=== PATIENT | male | born 1935 | race Caucasian/White ===

== ENCOUNTER 2019-05-11 15:05 | Inpatient (IN) | payer MEDICARE, OTHER ==
[~2019-05-11 15:05] MED LIST: ISOVUE-370 76%-LOCM 1 ML ONE
[2019-05-11] MEDS ORDERED: Diltiazem 125 MG/25 ML ONE (15:34)
[2019-05-11] MEDS ORDERED: Aspirin Chewable 81 MG TAB ONE (15:34)
[2019-05-11 15:36] LABS: #Basophils 0.1 thou/uL (0.0-0.2); #Eosinphils 0.2 thou/uL (0.0-0.7); #Lymphocytes 3.6 thou/uL (1.20-3.40); #Neutrophils 6.7 thou/uL (1.40-6.50); %Basophils 0.6 % (0.0-1.0); %Eosinophils 1.7 % (0.0-10.0); %Lymphocytes 31.3 % (21.0-51.0); %Monocytes 8.3 % (0.0-10.0); %Neutrophils 58.2 % (42.0-75.0); Hemoglobin 14.4 g/dL (14.0-18.0); Mean Corpuscular HGB CONC 34.1 g/dL (32.0-36.0); Mean Corpuscular Hemoglobin 30.7 pg (27.0-31.0); Mean Corpuscular Volume 90.1 fL (78.0-98.0); Mean Platelet Volume 8.2 fL (7.4-10.4); Platelet Count 299 thou/uL (130-400); RBC Distribution Width 13.3 % (11.5-14.5); Red Blood Cell (RBC) Count 4.69 mill/uL (4.70-6.10); White Blood Cell (WBC) Count 11.5 thou/uL (4.8-10.8)
[2019-05-11 15:42] LABS: INR-International Normal Ratio 1.2; PTT 29.2 SEC (22.9-36.1)
--- NOTE | 2019-05-11 16:02 | RAD ---
EXAM: Portable chest PROVIDED CLINICAL HISTORY: Generalized weakness COMPARISON: 05/12/2017 FINDINGS: Cardiac silhouette appears prominent, which may be least partially on the basis of portable technique . Prominence of the pulmonary vasculature and pulmonary interstitium. No focal consolidation, pleural fluid or pneumothorax evident. IMPRESSION: Cardiomegaly and findings suggesting congestive failure. Follow-up recommended.
[2019-05-11 16:03] LABS: ALT (SGPT) 39 U/L (8-55); AST (SGOT) 43 U/L (5-34); Albumin 3.7 g/dL (3.4-4.8); Alkaline Phosphatase 107 U/L (40-150); Anion Gap 16 mmol/L (10-20); BUN (Urea Nitrogen) 21 mg/dL (8.4-25.7); Bilirubin, Total 0.6 mg/dL (0.2-1.2); Calc. Creatinine Clearance 91 mL/min (70-130); Calcium 9.8 mg/dL (7.8-10.44); Carbon Dioxide 24 mmol/L (23-31); Chloride 102 mmol/L (98-107); Estimated GFR-MDRD 83; Globulin 3.9 g/dL (2.4-3.5); Glucose 108 mg/dL (83-110); Magnesium 2.3 mg/dL (1.6-2.6); Potassium 4.2 mmol/L (3.5-5.1); Protein, Total 7.6 g/dL (5.8-8.1); Sodium 138 mmol/L (136-145)
[2019-05-11 16:22] LABS: CKMB 2.4 ng/mL (0-6.6)
[2019-05-11 16:51] LABS: Bacteria/HPF None Seen HPF (None Seen); Bilirubin Negative (Negative); Blood, Urine Trace (Negative); Clarity Clear (Clear); Glucose, Urine (Dipstick) Normal (Negative); Leukocyte Negative Leu/uL (Negative); Mucous/LPF 2+ LPF (<2+); Nitrite Negative (Negative); Protein, Urine (Dipstick) 50 mg/dL (Neg-Trace); RBC/HPF 0-3 HPF (0-3); Squamous Epithelial None Seen HPF (0-3); WBC/HPF 0-3 HPF (0-3)
[2019-05-11] MEDS ORDERED: Azithromycin 500 MG VIAL ONE (16:55)
[2019-05-11] MEDS ORDERED: Furosemide 20 MG/2 ML VIAL ONE (16:55)
[2019-05-11] MEDS ORDERED: Famotidine/PF 20 mg/2ml Vial ONE (16:55)
[2019-05-11] MEDS ORDERED: methylPREDNISolone Sod Succ/PF 125 MG/2 ML VIAL ONE (16:55)
[2019-05-11] MEDS ORDERED: diphenhydrAMINE 50 MG/ML VIAL ONE (16:55)
[2019-05-11] MEDS ORDERED: cefTRIAXone\\ROCEPHIN 2 GM VIAL ONE (16:58)
[2019-05-11] MEDS ORDERED: Sodium Chloride 0.9% 100 ML ONE (16:58)
[2019-05-11] MEDS ORDERED: Azithromycin 500 MG in Sodium Chloride 0.9% 250 ML 250 ML IVPB SCH (18:00)
--- NOTE | 2019-05-11 18:02 | PDOC.FPRHP ---
- History of Present Illness Chief Complaint: weakness, afib with rvr History of Present Illness: 83yo CM with h/o HLD, HTN, CAD, EtOH abuse presents for weakness found to be in afib with RVR. Pt was outside earlier today and reports feeling dizzy, lightheaded, and falling down. Denies LOC, n/v, numbness/tingling, or any focal neurologic deficits. Weakness was an overall weakness. No similar events in past. Patient does report having non-bloody diarrhea last night that awoke him from sleep but has since resolved today. No n/v, abdominal pain or cramping. No fever/chills. Denies CP. Pt does endorses dyspnea and cough for last 5-6 weeks that has worsened over past week and a "terrible cold." Denies any orthopnea or PND or LE edema. Records reviewed and had ECHO in 2017 that was WNL. ED Course: In the ED he was given 500cc NS bolus. Pepcid 20mg, Solumedrol 125mg, benadryl 50mg, and ASA 325mg He was given azithro 500mg and Rocephin 2g Found to be in afib with RVR, dilt gtt titrated up to 15, still in Afib with RVR , started on Amio bolus. Elevated BNP, cardiomegaly, given 20mg Lasix IV Elevated D-dimer, CTA chest taken. - Allergies/Adverse Reactions Allergies Allergy/AdvReac Type Severity Reaction Status Date / Time iodine Allergy Verified 05/16/14 11:05 - Home Medications Medication Instructions Recorded Confirmed Type Furosemide 20 mg PO DAILY 05/16/14 05/13/17 History Lisinopril/Hydrochlorothiazide 1 tab PO DAILY 05/16/14 05/13/17 History [Prinizide] Finasteride 5 mg PO DAILY 08/21/14 05/13/17 History Isosorbide Mononitrate [Imdur ER] 30 mg PO DAILY 08/21/14 05/13/17 History Loratadine [Loratadine Allergy] 10 mg PO DAILY 08/21/14 05/13/17 History PARoxetine HCl 20 mg PO DAILY 08/21/14 05/13/17 History Alfuzosin HCl [Alfuzosin HCl ER] 10 mg PO HS 05/13/17 05/13/17 History Gabapentin [Neurontin] 600 mg PO Q6H PRN 05/13/17 05/13/17 History Morphine ER [MS Contin] 15 mg PO Q8HR 05/13/17 05/13/17 History Comments: Patient unaware of his home medications. Will attempt to determine home meds. - History PMHx: HLD, HTN, BPH, chronic back pain, CAD. Echo 2017 WNL. PSHx: L hip, appy, back surgery x6 FHx:Son of DMI at age 32. Grandmother DMII. Mom [place] at 92. Social: Former smoker - 35py smoking history. Drinks about 12 back of beer daily and Scotch "when he can get it." No illicits. - Review of Systems General: denies: fever/chills, weight/appetite/sleep changes, night sweats, fatigue Eyes: denies: eye pain, vision changes ENT: denies: nasal congestion, rhinorrhea Respiratory: reports: cough, congestion, shortness of breath. denies: exercise intolerance Cardiovascular: reports: palpitation. denies: chest pain, edema, paroxysmal nocturnal dyspnea, orthopnea Gastrointestinal: reports: diarrhea. denies: nausea, vomiting, constipation, abdominal pain, GI bleeding Genitourinary: denies: incontinence, dysuria Skin: denies: rashes, jaundice Musculoskeletal: reports: stiffness (back). denies: tenderness Neurological: denies: numbness, syncope, seizure, weakness - Vital signs BP: 141/113 HR: 145 RR: 24 Tmax: 98.5 Pox: 96% on RA Wt: 99kg - Physical Exam Constitutional: NAD, awake, alert and oriented HEENT: PERRLA, EOMI, conjunctiva clear, grossly normal vision, MMM Neck: supple, trachea midline Heart: no murmurs/rubs/gallops, other (Tachycardia, irregularlly irregular rate and rhythm. 1+ pitting edema BL LE to mid-joshi) Lungs: no wheezing, no retractions, other (Course BS BL. Upper airway noises transmitted throughout. No focal consolidation noted.) Abdomen: soft, bowel sounds present, no masses/distention, other (Mildly TTP over epigastric region) Musculoskeletal: normal structure, normal tone Neurological: no focal deficit, normal sensation Skin: no rash/lesions, other (large midline wellhealed scar on back. Very cold LE L>R. Decreased BL LE pulses. No obvious sores noted.) Heme/Lymphatic: no unusual bruising or bleeding Psychiatric: normal mood and affect FMR H&P: Results - Labs Result Diagrams: 05/11/19 15:27 05/11/19 15:27 Lab results: WBC 11.5 thou/uL (4.8-10.8) H 05/11/19 15:27 Hgb 14.4 g/dL (14.0-18.0) 05/11/19 15:27 Hct 42.2 % (42.0-52.0) 05/11/19 15:27 MCV 90.1 fL (78.0-98.0) 05/11/19 15:27 Plt Count 299 thou/uL (130-400) 05/11/19 15:27 Neutrophils % 58.2 % (42.0-75.0) 05/11/19 15:27 Sodium 138 mmol/L (136-145) 05/11/19 15:27 Potassium 4.2 mmol/L (3.5-5.1) 05/11/19 15:27 Chloride 102 mmol/L (98-107) 05/11/19 15:27 Carbon Dioxide 24 mmol/L (23-31) 05/11/19 15:27 BUN 21 mg/dL (8.4-25.7) 05/11/19 15:27 Creatinine 0.88 mg/dL (0.7-1.3) 05/11/19 15:27 Glucose 108 mg/dL (83-110) 05/11/19 15:27 Lactic Acid 2.3 mmol/L (0.5-2.2) H 05/11/19 15:41 Calcium 9.8 mg/dL (7.8-10.44) 05/11/19 15:27 Total Bilirubin 0.6 mg/dL (0.2-1.2) 05/11/19 15:27 AST 43 U/L (5-34) H 05/11/19 15:27 ALT 39 U/L (8-55) 05/11/19 15:27 Alkaline Phosphatase 107 U/L (40-150) 05/11/19 15:27 CK-MB (CK-2) 2.4 ng/mL (0-6.6) 05/11/19 15:27 B-Natriuretic Peptide 372.8 pg/mL (0-100) H 05/11/19 15:27 Serum Total Protein 7.6 g/dL (5.8-8.1) 05/11/19 15:27 Albumin 3.7 g/dL (3.4-4.8) 05/11/19 15:27 Urine Ketones Trace mg/dL (Negative) A 05/11/19 16:29 Urine Blood Trace (Negative) A 05/11/19 16:29 Urine Nitrite Negative (Negative) 05/11/19 16:29 Ur Leukocyte Esterase Negative Tommy/uL (Negative) 05/11/19 16:29 Urine RBC 0-3 HPF (0-3) 05/11/19 16:29 Urine WBC 0-3 HPF (0-3) 05/11/19 16:29 Ur Squamous Epith Cells None Seen HPF (0-3) 05/11/19 16:29 Urine Bacteria None Seen HPF (None Seen) 05/11/19 16:29 - EKG Interpretation EKG: Afib with RVR - Radiology Interpretation Chest x-ray Status: image reviewed by me, report reviewed by me (cardiomegaly) CT scan - chest Status: report reviewed by me (negative for PE. Right Pulm infiltrate, BL pleural effusions.) FMR H&P: A/P - Problem List (1) Atrial fibrillation with RVR Current Visit: Yes Status: Acute Code(s): I48.91 - UNSPECIFIED ATRIAL FIBRILLATION (2) Lactic acid acidosis Current Visit: Yes Status: Acute Code(s): E87.2 - ACIDOSIS Comment: resolved. (3) CAD (coronary artery disease) Current Visit: Yes Status: Chronic Code(s): I25.10 - ATHSCL HEART DISEASE OF [place] CORONARY ARTERY W/O ANG PCTRS (4) Dyslipidemia Current Visit: Yes Status: Chronic Code(s): E78.5 - HYPERLIPIDEMIA, UNSPECIFIED (5) Hypertension Current Visit: Yes Status: Chronic Code(s): I10 - ESSENTIAL (PRIMARY) HYPERTENSION Qualifiers: Hypertension type: essential hypertension Qualified Code(s): I10 - Essential (primary) hypertension (6) Community acquired pneumonia Current Visit: Yes Status: Acute Code(s): J18.9 - PNEUMONIA, UNSPECIFIED ORGANISM - Plan 83yo M with h/o paroxysmal afib in 2013, CAD, HTN, and HLD who presents for weakness found to have afib with RVR 1. Afib with RVR - Dilt gtt at 15, given Amio bolus in ED - admit to IMCU and continue amio - monitor on tele - cards consult- Dr. Santos, apprec recs 2. Elevated Trop - h/o CAD, no CP - Trop 0.065. - EKG no acute T wave or ST changes, Afib with RVR - monitor on tele - trend trops 3. Sepsis 2/2 Community acquired PNA - s/p 1 dose azithro 500mg and Rocephin 2g in ED. Will continue abx. - CTA - Right pulm infiltrate - UA no s/s of infx, UCx and BCx pending - Will check procal - LA 2.3, will trend 4. Elevated BNP - BNP 372, records reviewed and baseline around 50 - ECHO in 2017 normal - will repeat ECHO - s/p Lasix 20mg IV in ED. 1+ pitting edema BL - Will monitor and diuresis prn 5. Elevated D- Dimer - D-dimer 1.68 - CTA negative for PE 6. HTN - prn hydralazine, will obtain med rec 7. H/o Alcohol Abuse - drinks "when he can get it" but to a 12pack per day and Scotch when he can - Checking BAL - ASE protocl - Will monitor VTE: Lovenox Diet: Code: DNR- DNI Disposition/LOS: Admit to IMCU, amio loading dose and dilt gtt, monitor on tele. Cards consulted , apprec rec. Anticipate hospitalization >48hours. FMR H&P: Upper Level - Pertinent history I was present with the spring intern and scribed the above HPI as we talked with the patient. Pt reports having episode of weakness. Did not have LOC. reports having cough and cold for 4-6 weeks. reports episode of diarrhea last night. - Pertinent findings Pt is somewhat somnolent. Pt has some trace edema in his lower extremities. HR tachy and irregular. Some mild rales noted bilaterally in both lung smith. No wheezes or crackles. - Plan Date/Time: 05/11/19 1800 I, Ghulam Lee MD PGY-3, have evaluated this patient and agree with findings/ plan as outlined by spring intern resident. Pertinent changes/additions are listed here. I adjusted the above plan and reviewed it with the spring intern. At this time we have started amiodarone drip along with his dilt drip which is maxed out. HR continues to run from 120-160. Pt in no acute distress. Reports having cold like symptoms for over a month. Will continue Rocephin and Azithromycin for now. CTA was taken and read pending. Trop elevated. will trend. Addendum - Attending - Attending Attestation Date/Time: 05/11/191940 I personally evaluated the patient and discussed the management with Dr. Cunningham. I agree with the History, Examination, Assessment and Plan documented above with any addition or exceptions noted below. The patient presents after an episode of weakness. He has also had a cough for over 4 weeks. The patient's white count is elevated. He was found to be in a.fib with RVR. He is maxed out on cardizem. Will bolus amiodarone and start a drip. He will admit to the icu. CTA chest shows infiltrate, will treat with iv antibiotics. Consulting cardiology.
--- NOTE | 2019-05-11 18:09 | CT ---
EXAM: CTA of the chest HISTORY: Chest pain and elevated d-dimer COMPARISON: 05/12/2017 TECHNIQUE: Multiple contiguous axial images were obtained a CTA of the chest with contrast per pulmon del embolism protocol. 3-D oblique MIP reformats and direct coronal reformats were performed. FINDINGS: HEART: Normal in size without focal cardiac abnormality. PULMONARY ARTERIES: Normal in caliber without filling defects to suggest pulmonary emboli. MEDIASTINUM: No hilar or mediastinal lymphadenopathy. LUNGS: 8 mm well-circumscribed left upper lobe pulmonary nodule. Scattered infiltrates are seen in th e posterior aspect of the right upper lobe and superior aspect of the right lower lobe. PLEURAL SPACE: Small bilateral pleural effusions. CHEST WALL SOFT TISSUES: Unremarkable VISUALIZED OSSEOUS STRUCTURES: Degenerative changes are seen in the spine. VISUALIZED SUBDIAPHRAGMATIC STRUCTURES: Unremarkable IMPRESSION: 1. No evidence of pulmonary thromboembolism 2. Right-sided pulmonary infiltrates 3. Bilateral pleural effusions.
[2019-05-11] MEDS ORDERED: Magnesium 2 GM/50 ML BAG (IN WATER) ONE (18:19)
[2019-05-11] MEDS ORDERED: Amiodarone 150 MG in Dextrose 5% in Water 100 ML IVPB SCH (18:30)
[2019-05-11] MEDS ORDERED: Calcium Carbonate 500 MG ChewTAB PO PRN (18:35)
[2019-05-11] MEDS ORDERED: Acetaminophen 325 MG TAB PO PRN (18:35)
[2019-05-11] MEDS ORDERED: Senokot S 8.6-50 MG TAB PO PRN (18:35)
[2019-05-11 19:17] LABS: Alcohol Less than 10 mg/dL (Less than 10); Phosphorus 2.8 mg/dL (2.3-4.7)
[2019-05-11 19:24] LABS: Troponin I 0.067 ng/mL (< 0.028)
[2019-05-11 19:37] LABS: Lactic Acid 1.8 mmol/L (0.5-2.2)
[2019-05-11] MEDS: Amiodarone 450 MG in Dextrose 5% in Water 250 ML IVPB SCH (20:46)
[2019-05-11 22:22] LABS: Troponin I 0.055 ng/mL (< 0.028)
[2019-05-11] MEDS: Lorazepam 2 MG/ML VIAL SLOW IVP PRN (22:59)
[2019-05-12] MEDS: Diltiazem HCl 125 MG, Admixture Fee 1 EACH in Sodium Chloride 0.9% 100 ML IVPB SCH ×2 (00:02→13:21)
[2019-05-12 01:34] LABS: #Lymphocytes 1.3 thou/uL (1.20-3.40); #Monocytes 0.2 thou/uL (0.11-0.59); %Basophils 0.1 % (0.0-1.0); %Eosinophils 0.3 % (0.0-10.0); %Lymphocytes 13.4 % (21.0-51.0); %Monocytes 1.9 % (0.0-10.0); %Neutrophils 84.3 % (42.0-75.0); Hemoglobin 13.9 g/dL (14.0-18.0); Mean Corpuscular HGB CONC 32.6 g/dL (32.0-36.0); Mean Corpuscular Hemoglobin 29.3 pg (27.0-31.0); Mean Platelet Volume 8.1 fL (7.4-10.4); Platelet Count 262 thou/uL (130-400); RBC Distribution Width 13.3 % (11.5-14.5); Red Blood Cell (RBC) Count 4.74 mill/uL (4.70-6.10); White Blood Cell (WBC) Count 9.5 thou/uL (4.8-10.8)
[2019-05-12 01:52] LABS: Lactic Acid 1.4 mmol/L (0.5-2.2)
[2019-05-12 02:00] LABS: Anion Gap 13 mmol/L (10-20); BUN (Urea Nitrogen) 22 mg/dL (8.4-25.7); Calc. Creatinine Clearance 80 mL/min (70-130); Calcium 9.3 mg/dL (7.8-10.44); Carbon Dioxide 26 mmol/L (23-31); Chloride 104 mmol/L (98-107); Estimated GFR-MDRD 84; Glucose 199 mg/dL (83-110); Potassium 3.9 mmol/L (3.5-5.1); Sodium 139 mmol/L (136-145)
[2019-05-12] MEDS: Amiodarone 450 MG in Dextrose 5% in Water 250 ML IVPB SCH ×2 (04:02→23:44)
--- NOTE | 2019-05-12 06:07 | PDOC.EVN ---
Event Note - Event Note Event Note: Paged to pt room at 0545 to evaluated for new onset left sided weakness, slurred speech. On exam patient has 0/5 LUE and 2/5 LLE. Left-sided facial droop. A/O x1. Slurred speech. Code Green stroke alert called. CT head w/o ordered.
--- NOTE | 2019-05-12 06:12 | PDOC.FM ---
- Subjective Subjective: Patient was found by nursing staff at approx 0530 this AM to have new slurred speech and left sided weakness. A code green was called at approx 0600 and night resident team evaluating the patient also noted new left-sided deficits. At that time the patient was also A&O x 1. Currently the patient is alert and has regained most of his speech back, although still slurred and weak on the left side. Otherwise denies any additional complaints. - Objective Vital Signs & Weight: Vital Signs (12 hours) Temp Pulse Ox 05/12/19 04:00 98.3 F 05/12/19 00:00 98.2 F 05/11/19 20:00 97.8 F 99 05/11/19 19:55 97.8 F Weight Weight 86.8 kg Most Recent Monitor Data Heart Rate from ECG 78 NIBP 144/67 NIBP BP-Mean 92 Respiration from ECG 14 SpO2 100 I&O: 05/10/19 05/11/19 05/12/19 06:59 06:59 06:59 Intake Total 220 Output Total 103 Balance 117 Result Diagrams: 05/12/19 01:28 05/12/19 01:28 Phys Exam - Physical Examination Constitutional: NAD slurred speech HEENT: moist MMs, sclera anicteric Neck: no JVD, supple Respiratory: no wheezing, clear to auscultation bilateral Decreased breath sounds in right lung base Cardiovascular: no significant murmur irregular rhythm, tachycardic Gastrointestinal: soft, non-tender, positive bowel sounds Musculoskeletal: no edema, pulses present 2/5 strength LUE, 3/5 strength LLE, 4/5 strength in RUE & RLE Psychiatric: normal affect, A&O x 3 Skin: no rash, normal turgor Dx/Plan (1) Atrial fibrillation with RVR Code(s): I48.91 - UNSPECIFIED ATRIAL FIBRILLATION Status: Acute (2) Community acquired pneumonia Code(s): J18.9 - PNEUMONIA, UNSPECIFIED ORGANISM Status: Acute Qualifiers: Laterality: unspecified laterality Qualified Code(s): J18.9 - Pneumonia, unspecified organism (3) CAD (coronary artery disease) Code(s): I25.10 - ATHSCL HEART DISEASE OF [place] CORONARY ARTERY W/O ANG PCTRS Status: Chronic Qualifiers: Coronary Disease-Associated Artery/Lesion type: unspecified vessel or lesion type [place] vs. transplanted heart: [place] heart Associated angina: angina presence unspecified Qualified Code(s): I25.10 - Atherosclerotic heart disease of [place] coronary artery without angina pectoris (4) Hypertension Code(s): I10 - ESSENTIAL (PRIMARY) HYPERTENSION Status: Chronic Qualifiers: Hypertension type: essential hypertension Qualified Code(s): I10 - Essential (primary) hypertension (5) Altered mental status Code(s): R41.82 - ALTERED MENTAL STATUS, UNSPECIFIED Status: Acute Qualifiers: Altered mental status type: disorientation Qualified Code(s): R41.0 - Disorientation, unspecified - Plan Plan: 83yo M with h/o paroxysmal afib in 2013, CAD, HTN, and HLD who presents for weakness found to have afib with RVR 1. Afib with RVR - Dilt gtt at 15, given Amio bolus in ED - admit to IMCU and continue amio - monitor on tele - Cardio consult- Dr. Santos, appreciate recs 2. Elevated Trop - h/o CAD, no CP - Trop 0.065 > 0.067 > 0.055 - EKG no acute T wave or ST changes, Afib with RVR - monitor on tele 3. Sepsis 2/2 Community acquired PNA - s/p 1 dose azithro 500mg and Rocephin 2g in ED. Will continue abx. - CTA - Right pulm infiltrate - UA no s/s of infx, UCx pending - BCx neg at 12 hours - Procal 0.17 > 0.13, will trend - LA 2.3 -> 1.8, will trend - Pulm consult--leonid Hood recs 4. Elevated BNP - BNP 372, records reviewed and baseline around 50 - ECHO in 2017 normal - will repeat ECHO this AM - s/p Lasix 20mg IV in ED. 1+ pitting edema BL - Will monitor and diuresis prn 5. Elevated D- Dimer - D-dimer 1.68 - CTA negative for PE 6. HTN - prn hydralazine, will obtain med rec 7. H/o Alcohol Abuse - drinks "when he can get it" but to a 12pack per day and Scotch when he can - Checking BAL - ASE protocl - Will monitor 8. CVA with Left-sided Weakness--NEW - Code Green called @ 0600 on 05/12/19 - repeat CT head w/o showed new small subdural on left - MRI head pending - CT angio: 4.6 mm focal clot in right MCA - Neuro consult--Harlan, appreciate recs - Neurosurgery consult--appreciate recs - adjust Lovenox to therapeutic dosing VTE: held pending Neurosurg recs Diet: HH Code: DNR- DNI Dispo: Admit to IMCU, amio loading dose and dilt gtt, monitor on tele. Cards, Pulm, Neuro, Neurosurg consulted, apprec rec. Awaiting results of MRI head. Anticipate hospitalization >48hours. Daughter: Taina Dominique, lives in [place], will be kept updated on patient's condition. Son in law: Michael (Taina ) cell: [phone] Son: Alban, cell: [phone] ^Patient states is okay to call the above three individuals for updates on his clinical condition Addendum - Attending - Attending Attestation Date/Time: 05/12/19 2745 I personally evaluated the patient and discussed the management with Dr. Whitlock. I agree with the History, Examination, Assessment and Plan documented above with any addition or exceptions noted below. Close to 6 the patient was noted to have left sided facial droop, left sided weakness and slurred speech. Mercedes michel called and pt taken to the ER for CT scan. We were called to come to the ER to evaluate for possible TPA. CT showed a small subdural hematoma, contraindication for tpa. After the initial CT, the patient's speech started improving and he was answering questions appropriately but left sided weakness remained. 0/5 in LUE and 2/5 in LLE. He was premedicated for the CT with shows a clot in the R MCA. With the subdural and now a clot in the MCA, lovenox is being held until we obtain neurology and neurosurgery recs. Pt's heart rate is improved with the diltiazem and amiodarone. Will continue antiibiotics for pneumonia. He also was hallucinating last night. ASE protocol is on board with his hx of alcohol use. We will follow specialists recs on how to proceed with anticoagulation in the setting of a clot in the MCA and a subdural hematoma. Adding PT/OT/ST.
[2019-05-12] MEDS ORDERED: diphenhydrAMINE 50 MG/ML VIAL ONE (06:41)
[2019-05-12] MEDS ORDERED: Famotidine/PF 20 mg/2ml Vial ONE (06:41)
[2019-05-12] MEDS ORDERED: Hydrocortisone Sod Succ/PF 100 mg/2 ml Vial ONE (06:41)
[2019-05-12] MEDS ORDERED: Hydrocortisone Sod Succ/PF 100 mg/2 ml Vial IVP SCH (07:30)
[2019-05-12] MEDS ORDERED: diphenhydrAMINE 50 MG/ML VIAL IVP SCH (07:30)
[2019-05-12] MEDS ORDERED: Famotidine/PF 20 mg/2ml Vial SLOW IVP SCH (07:30)
--- NOTE | 2019-05-12 07:52 | CT ---
PRELIMINARY REPORT/[facility]/EMERGENCY AFTER HOURS PROCEDURE: Addendum created by Lise Dominguez MD on 05/12/2019 6:32 AM Central Time ([place] & [place]) XOCHITL RADHA recieved report and has no questions. Initial Report created on 05/12/2019 6:27 AM Central Time ([place]) EXAM: CT Head Without Contrast EXAM DATE/TIME: 05/12/2019 6:14 AM CLINICAL HISTORY: 83 years old, male; Altered mental status/memory loss and speech disturbance; Patient HX: AMS; Left sided weakness; Slurred speech TECHNIQUE: Imaging protocol: Computed tomography of the head without contrast. Other technique: STROKE PROTOCOL was implemented. COMPARISON: CT Brain WO Con 05/12/2017 7:25 PM FINDINGS: Brain: There is approximately 5 mm left subdural hematoma which is slightly hypodense to brain and li rola subacute age. Previously seen low density chronic subdural collection was present on prior examination of similar thickness and therefore this likely indicates remote rebleeding into the hemorrhage. There is no hyperdense acute blood. There is no midline shift. There is age-related volume loss and mild microvascular change infarct. No loss of murcia-white differentiation. No hyperdense vascular sign. Ventricles: No ventriculomegaly. Bones/joints: No acute fracture. Sinuses: Unremarkable as visualized. No acute sinusitis. Mastoid air cells: No significant mastoid effusion. Soft tissues: Unremarkable as visualized. IMPRESSION: 1. Small left convexity subacute subdural hematoma thickness is low density chronic hematoma. No evid ence of acute hemorrhage currently within the collection. No mass effect or midline shift. 2. No findings to suggest acute territorial infarct. No acute parenchymal hemorrhage. ASSESSMENT: ASPECTS ([place] Stroke Program Early CT Score) is 10. Thank you for allowing us to participate in the care of your patient. Dictated and Authenticated by: Lise Dominguez MD 05/12/2019 6:27 AM Central Time ([place]) FINAL REPORT: CT BRAIN WITHOUT CONTRAST: PROVIDED CLINICAL HISTORY: Left-sided weakness. COMPARISON: None. FINDINGS/IMPRESSION: Agree with the preliminary interpretation given by VRSYL. Transcribed Date/Time: 05/12/2019 9:43 AM
--- NOTE | 2019-05-12 08:13 | CT ---
FINAL REPORT: CT angiogram brain with IV contrast and three-dimensional reconstructions CT angiogram great vessels neck with IV contrast and 3-D reconstructions PROVIDED CLINICAL HISTORY: Left-sided weakness COMPARISON: None FINDINGS/IMPRESSION: Agree with the preliminary interpretation given by JAZZY.
[2019-05-12] MEDS ORDERED: Potassium Chloride 20 MEQ TAB PO SCH (08:45)
[2019-05-12] MEDS ORDERED: Enoxaparin Sodium 80 MG/0.8 ML SYRINGE SC SCH (09:00)
[2019-05-12] MEDS ORDERED: Enoxaparin Sodium 40 MG/0.4 ML SYRINGE SC SCH (09:00)
[2019-05-12] MEDS: Enoxaparin Sodium 100 MG/ML SYRINGE SC SCH ×2 (09:22→20:49)
[2019-05-12] MEDS: Thiamine 100 MG TAB PO SCH ×2 (09:22→09:31)
[2019-05-12] MEDS ORDERED: Sodium Chloride 0.9% 500 ML IV SCH (09:45)
[2019-05-12] MEDS ORDERED: Aspirin 325 MG TAB PO SCH (10:00)
[2019-05-12] MEDS ORDERED: Iopamidol 370 76% 100 ML VIAL ONE (10:41)
--- NOTE | 2019-05-12 10:45 | CON ---
DATE OF CONSULTATION: 05/12/2019 REASON FOR CONSULTATION: Atrial fibrillation with a rapid rate. HISTORY OF PRESENT ILLNESS: Mr. Steiner is an 83-year-old man. He was brought to the hospital with weakness. He was found to be in atrial fibrillation with a rapid ventricular response. The patient had dizziness, lightheadedness, and falling. The patient was hypotensive, and he was given normal saline bolus, Pepcid, Solu-Medrol, Benadryl, and aspirin. Also, given antibiotics. He was given diltiazem, but the rate did not come down. Therefore, he has also been started on intravenous amiodarone. MEDICATIONS: Listed at home are, 1. Furosemide. 2. Lisinopril HCT. 3. Isosorbide. 4. Gabapentin. REVIEW OF SYSTEMS: Not reliable. The patient is somewhat confused. PAST MEDICAL HISTORY: Hypertension, hyperlipidemia, prostatism. SOCIAL HISTORY: The patient said he stopped smoking over 30 years ago. He drinks, its estimated a 12 pack of beer daily and scotch when he can get it. He also says "I enjoy a glass of wine." REVIEW OF SYSTEMS: Not really reliable now. The patient knows he is in the hospital, although he does not know what year it is. PHYSICAL EXAMINATION: GENERAL: This is a somewhat disheveled, but cooperative elderly gentleman. VITAL SIGNS: Blood pressure is 150/100, previously 129/106, pulse is 105, it is irregular. LUNGS: Some expiratory rhonchi and inspiratory rhonchi. No wheezing. CARDIAC: Irregularly irregular. No murmur, rub, or gallop. ABDOMEN: Soft, nontender. EXTREMITIES: No clubbing or cyanosis. There is mild edema. The left foot is cool, but not cold. PERTINENT LABORATORY DATA: Potassium is 3.9, creatinine is 0.87, troponin is 0.055. Hemoglobin is 13.9. EKG reveals atrial fibrillation with a rapid rate. Medicines, he is on intravenous amiodarone and diltiazem. The patient is not currently on enoxaparin, but need to start that. ASSESSMENT: Atrial fibrillation with a rapid rate, probably recent onset with a very rapid rate, it probably would have been symptomatic, if he had been in for a prolonged time, but we do not know the exact onset. The patient did not respond to diltiazem alone. PLAN: 1. He is on amiodarone and diltiazem. 2. Start enoxaparin. 3. If he does not convert to sinus, we will probably need transesophageal echo and cardioversion. Job ID: [id number]
--- NOTE | 2019-05-12 11:17 | CON ---
DATE OF CONSULTATION: 05/12/2019 TIME SPENT: This encompassed 70 minutes of time, of that time greater than 50% spent with the patient and/or the patient's unit in the hospital. CONSULTING PHYSICIAN: Family Medicine Residency Service. HISTORY OF PRESENT ILLNESS: The patient is an 83-year-old male, who came to the hospital yesterday with atrial fibrillation with rapid ventricular response. Apparently, he had fallen, may have a subdural hematoma, and may have a clot in the brain. He developed some left-sided weakness this morning and was taken to CT. Neurosurgery has been consulted. He is currently on amiodarone and Cardizem for control of atrial fibrillation. At the current time, he has no complaints other than the left-sided weakness. PAST MEDICAL HISTORY: 1. Concussion. 2. Hyperlipidemia. 3. Hypertension. 4. Benign prostatic hypertrophy. 5. Chronic back pain. 6. Coronary artery disease. PAST SURGICAL HISTORY: 1. Left hip surgery. 2. Appendectomy. 3. Back surgery. FAMILY MEDICAL HISTORY: Remarkable for diabetes mellitus and myocardial infarction. SOCIAL HISTORY: Thirty-five pack-year history of smoking, quit some time ago. Drinks about 12-pack of beer per day. MEDICATIONS: Prior to admission; 1. Furosemide 20 mg daily. 2. Lisinopril/hydrochlorothiazide 1 daily. 3. Finasteride 5 mg daily. 4. Isosorbide mononitrate 30 mg daily. 5. Loratadine 10 mg daily. 6. Paroxetine 20 mg daily. 7. Alfuzosin 10 mg nightly. 8. Neurontin 600 mg every 6 hours as needed. 9. Morphine extended release 15 mg every 8 hours. REVIEW OF SYSTEMS: Denies fever, chills, nausea, vomiting, hematemesis, melena, hematochezia, cough, or congestion. PHYSICAL EXAMINATION: VITAL SIGNS: Temperature 98.3, pulse 117, blood pressure 129/106, O2 saturation 99%. GENERAL: He is awake and in no distress. NEUROLOGIC: He is almost completely hemiparetic on his left side. He has a left-sided facial droop. Pupils are reactive to light. Sclerae anicteric. Oropharynx clear. NECK: No adenopathy or JVD. LUNGS: Clear without wheezing or rhonchi. CARDIAC: S1 and S2. Irregularly regular. Tachycardic. ABDOMEN: Soft and nontender. EXTREMITIES: No clubbing, cyanosis, or edema. LABORATORY DATA: White count 9.5, hemoglobin 13.9, hematocrit 42.6, platelet count 262. Sodium 139, potassium 3.8, chloride 104, CO2 of 26, BUN 22, creatinine 0.8, glucose 199. IMAGING STUDIES: His chest x-ray shows no mass, effusion, or infiltrate. A CT hinted the possible right lower lobe infiltrate. ASSESSMENT: 1. Atrial fibrillation with rapid ventricular response. 2. Right lower lobe infiltrate, possibly indicative of pneumonia. 3. Acute cerebrovascular accident. 4. Subdural hematoma which is small. PLAN: 1. Agree with rate control of atrial fibrillation. 2. Empiric antibiotics. 3. Neurology/Neurosurgery consultation. 4. DT precautions. Job ID: [id number]
--- NOTE | 2019-05-12 11:42 | PRG ---
DATE OF SERVICE: 05/12/2019 I personally reviewed records, imaging, and documentation and agreed with the notes of Keiry Bullock PA-C, dated 05/12/2019. Briefly, Mr. Steiner is an 83-year-old gentleman on whom we were consulted for subdural hematoma. The scan reveals a small nonsurgical subdural hematoma over the posterior inferior aspect of the left hemisphere, which I believe is asymptomatic and not causing significant mass effect. He does not require surgery. After leaving this recommendation, we were consulted as to the use of anticoagulants for an occluded right middle cerebral artery, contralateral to the subdural hematoma. This is not a simple question and requires a thoughful and nuanced neurology opinion. There are issues regarding the etiology of the occlusion. Paradoxical embolus or an embolus from the heart (like a recent PR resulting in AFib with very low EF or cardiac valvular disease) are etiologies in which anticoagulation might be warranted. For artery to artery embolus like a carotid plaque, then it is not the first choice. For intracranial stenosis that is thrombosed locally due to low blood pressure from poor cardiac output or overly aggressive BP lowering, then anticoagulation is also a back up choice. There is obviously an increased risk of the subdural hematoma enlarging with anticoagulation and there is a risk of the stroke hemorrhaging on the right side. Finally, the anticoagulant choice is critical. Our colleagues in Neurology would know that a large MCA infarct can swell and that it is possible that we will be called on the Neurosurgery Service in a few days to consider craniectomy. If the patient is fully anticoagulated on Coumadin, and certainly if they are placed on any of the newer anticoagulants, then the anticoagulation use will delay the life- saving procedure and likely result in or disability from our inability to perform the procedure safely. I am sure our colleagues in Neurology would weigh these facts carefully, consult with the family, and make decision as to anticoagulation or anti-platelet use that is nuanced. If anticoagulation is chosen, I am sure that our colleagues will start heparin infusion without a bolus and with a goal of a modest bump in the PTT. I am also sure they will order followup CT scans to ensure that the subdural hematoma is not enlarging and that the stroke is not becoming hemorrhagic. The straightforward neurosurgical question as to whether the subdural hematoma requires evacuation, is clear, it does not. Thank you for the consultation. Job ID: [id number] [facility] CENTERAriana
--- NOTE | 2019-05-12 12:32 | CON ---
DATE OF CONSULTATION: 05/12/2019 CONSULTING PHYSICIAN: Hospitalist Service. 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 PLAN: 1. Aspirin now and full-dose Lovenox for anticoagulation. 2. MRI of the brain. 3. Probable need for long-term anticoagulation. HISTORY OF PRESENT ILLNESS: Mr. Steiner is an 83-year-old man, who came in with atrial fibrillation with rapid ventricular response. He was neurologically intact when he was admitted. This morning when the nurse checked on him, she noted a left-sided weakness. He was taken down to CT for evaluation. There was found to have some chronic subdural bleed, but no other acute abnormality. He had a CT angiogram, which reportedly showed some amount of clot, although I cannot find a report. The nurses notes that his degree of weakness on the left side is improved somewhat. He is without any complaint of headache, nausea, vomiting, or vertigo. He has never had any stroke symptoms in the past by his report. PAST HISTORY: Hypertension, low back, lumbar disk disease, hyperlipidemia, and arthritis. ALLERGIES: NONE. SOCIAL HISTORY: He drinks on occasion. No tobacco use. FAMILY HISTORY: Noncontributory. MEDICATIONS: Medication list was reviewed. REVIEW OF SYSTEMS: Ten-system review of systems is otherwise negative. PHYSICAL EXAMINATION: VITAL SIGNS: Blood pressure 129/107, pulse 115, saturations 94%, and respirations 22. HEENT: Pupils are equal. Conjunctivae are clear. Oropharynx clear. Cranium; normocephalic and atraumatic. NECK: Supple. No lymphadenopathy. EXTREMITIES: No cyanosis or edema. NEUROLOGIC: He was alert and cooperative. His speech was mildly dysarthric. There was a slight left facial droop present. He had some partial antigravity strength in the left arm and leg. Sensation was subjectively intact, although he seemed to have a degree of neglect. No abnormal movements were seen. IMAGING: Reviewed. SUMMARY: This is an 83-year-old gentleman with atrial fibrillation, who awoke with left-sided weakness. Given the uncertain onset time, I would agree we will treat this conservatively, starting antiplatelet and anticoagulation. Can review his scan before committing to starting oral anticoagulation. Job ID: [id number]
[2019-05-12] MEDS ORDERED: Aspirin 300 MG Suppository ONE (13:21)
[2019-05-12] MEDS: Aspirin 300 MG Suppository PR SCH (13:22)
[2019-05-12 15:42] LABS: PTT 30.8 SEC (22.9-36.1)
[2019-05-12 15:44] LABS: INR-International Normal Ratio 1.2; Prothrombin Time 14.9 SEC (12.0-14.7)
[2019-05-12 15:46] LABS: Cardiac Risk 4.3 (Less than 4.5)
[2019-05-12] MEDS: cefTRIAXone\\ROCEPHIN 2 GM in Sodium Chloride 0.9% 100 ML IVPB SCH (16:41)
[2019-05-12] MEDS ORDERED: cefTRIAXone\\ROCEPHIN 1 GM in Sodium Chloride 0.9% 100 ML IVPB SCH (18:00)
[2019-05-12] MEDS: Azithromycin 250 MG in Sodium Chloride 0.9% 250 ML 250 ML IVPB SCH (20:48)
[2019-05-12] MEDS ORDERED: Prevnar 13-Val Conj/PF 0.5 ML SYRINGE IM ONE (21:00)
[2019-05-12] MEDS ORDERED: Atorvastatin Calcium 40 MG TAB PO SCH (21:00)
[2019-05-13] MEDS: Diltiazem HCl 125 MG, Admixture Fee 1 EACH in Sodium Chloride 0.9% 100 ML IVPB SCH ×2 (04:01→13:47)
--- NOTE | 2019-05-13 05:43 | PDOC.FM ---
- Subjective Subjective: Patient agitated and pulled out peripheral line. NAEO otherwise. Reports feeling okay, no issues breathing. Denies fatigue, CP, palpitations. A&O x2. - Objective Vital Signs & Weight: Vital Signs (12 hours) Temp Pulse Ox 05/13/19 04:00 98.5 F 05/12/19 23:56 98.5 F 05/12/19 20:00 98.2 F 95 Weight Weight 87.2 kg Most Recent Monitor Data Heart Rate from ECG 112 NIBP 125/78 NIBP BP-Mean 93 Respiration from ECG 14 SpO2 92 I&O: 05/11/19 05/12/19 05/13/19 06:59 06:59 06:59 Intake Total 220 1466.4 Output Total 103 800 Balance 117 666.4 Result Diagrams: 05/13/19 05:30 05/13/19 05:30 Phys Exam - Physical Examination Constitutional: NAD HEENT: PERRLA, moist MMs Neck: no nodes, no JVD right lower lobe crackles Cardiovascular: irregular tachycardic Gastrointestinal: positive bowel sounds distended left face facial droop, LUE and LLE weakness Psychiatric: normal affect Skin: cap refill <2 seconds Dx/Plan (1) CVA (cerebral vascular accident) Code(s): I63.9 - CEREBRAL INFARCTION, UNSPECIFIED Status: Acute (2) Subdural hematoma, chronic Code(s): I62.03 - NONTRAUMATIC CHRONIC SUBDURAL HEMORRHAGE Status: Acute (3) Atrial fibrillation with RVR Code(s): I48.91 - UNSPECIFIED ATRIAL FIBRILLATION Status: Acute (4) Community acquired pneumonia Code(s): J18.9 - PNEUMONIA, UNSPECIFIED ORGANISM Status: Acute Qualifiers: Laterality: unspecified laterality Qualified Code(s): J18.9 - Pneumonia, unspecified organism (5) CAD (coronary artery disease) Code(s): I25.10 - ATHSCL HEART DISEASE OF [place] CORONARY ARTERY W/O ANG PCTRS Status: Chronic Qualifiers: Coronary Disease-Associated Artery/Lesion type: unspecified vessel or lesion type [place] vs. transplanted heart: [place] heart Associated angina: angina presence unspecified Qualified Code(s): I25.10 - Atherosclerotic heart disease of [place] coronary artery without angina pectoris (6) Altered mental status Code(s): R41.82 - ALTERED MENTAL STATUS, UNSPECIFIED Status: Acute Qualifiers: Altered mental status type: disorientation Qualified Code(s): R41.0 - Disorientation, unspecified (7) Depression Code(s): F32.9 - MAJOR DEPRESSIVE DISORDER, SINGLE EPISODE, UNSPECIFIED Status : Chronic (8) GERD (gastroesophageal reflux disease) Code(s): K21.9 - GASTRO-ESOPHAGEAL REFLUX DISEASE WITHOUT ESOPHAGITIS Status: Chronic - Plan Plan: 83yo M with h/o paroxysmal afib in 2013, CAD, HTN, and HLD who presents for weakness found to have afib with RVR #Afib with RVR - Not rate controlled despite uptitration of amio & dilt gtt - Therapeutic lovenox (also for R MCA clot) - Cardiology on board, possible RODRIGO? - recs appreciated #Sepsis 2/2 Community acquired PNA - CTA - Right pulm infiltrate - vanc & zosyn, continue pending blood cultures - Dr. May on board, recs appreciated #Indeterminate troponin - likely demand ischemia from afib with RVR. Has hx of CAD - Trops downtrendin.065 > 0.067 > 0.055 - EKG no acute T wave or ST changes - Continue clinically monitoring, reobtain EKG, new set of trops if experiencing new CP #Elevated BNP - BNP 372, records reviewed and baseline around 50 - ECHO in 2017 normal - pending repeat echo # Elevated D- Dimer - D-dimer 1.68 - CTA negative for PE #HTN - prn hydralazine, will obtain med rec # H/o Alcohol Abuse - unsure history - BAL negative - ASE protocl - clinically monitor #CVA with Left-sided Weakness - [facility] called @ 0600 on 05/12/19 - repeat CT head with chronic subdural hematoma, neurosurg/neurology consulted - CT angio: 4.6 mm focal clot in right MCA - MRI head pending this AM - On therapeutic lovenox -neurosurg- no surgical intervention at this time, brain MRI this AM, if unable to obtain will need CT head to assess subdural hematoma #Subdural hematoma, chronic -see plan above VTE: lovenox BID (per cards/neurology) Diet: HH Code: Full Lines: left wrist peripheral, right AC peripheral Dispo: 1)Afib with RVR: rate still uncontrolled, on dilt & amio drip. On lovenox BID. Cards recs appreciated. 2) Suspected PNA-Continue rocephin & azithromycin, pending blood cx. 3) Acute CVA- Pending echo & MRI. On anticoagulation. 4) Chronic subdural hematoma-check with neuro for serial CT head to monitor. On anticoag for R MCA occlusion/clot so must monitor for re- hemorrhage. Will discuss wtih Dr. Willard Addendum - Attending - Attending Attestation Date/Time: 05/13/19 1843 I personally evaluated the patient and discussed the management with Dr. gant. I agree with the History, Examination, Assessment and Plan documented above with any addition or exceptions noted below.
[2019-05-13 06:02] LABS: #Lymphocytes 1.9 thou/uL (1.20-3.40); #Monocytes 0.9 thou/uL (0.11-0.59); #Neutrophils 13.1 thou/uL (1.40-6.50); %Basophils 0.3 % (0.0-1.0); %Eosinophils 0.1 % (0.0-10.0); %Lymphocytes 12.1 % (21.0-51.0); %Monocytes 5.5 % (0.0-10.0); %Neutrophils 82.1 % (42.0-75.0); Hemoglobin 13.4 g/dL (14.0-18.0); Mean Corpuscular HGB CONC 32.6 g/dL (32.0-36.0); Mean Corpuscular Hemoglobin 29.7 pg (27.0-31.0); Mean Corpuscular Volume 90.8 fL (78.0-98.0); Mean Platelet Volume 8.1 fL (7.4-10.4); Platelet Count 305 thou/uL (130-400); RBC Distribution Width 13.7 % (11.5-14.5); Red Blood Cell (RBC) Count 4.52 mill/uL (4.70-6.10); White Blood Cell (WBC) Count 15.9 thou/uL (4.8-10.8)
[2019-05-13 06:09] LABS: INR-International Normal Ratio 1.2; PTT 30.7 SEC (22.9-36.1); Prothrombin Time 15.1 SEC (12.0-14.7)
[2019-05-13 06:21] LABS: Anion Gap 14 mmol/L (10-20); BUN (Urea Nitrogen) 26 mg/dL (8.4-25.7); Calc. Creatinine Clearance 80 mL/min (70-130); Calcium 9.3 mg/dL (7.8-10.44); Carbon Dioxide 25 mmol/L (23-31); Chloride 106 mmol/L (98-107); Estimated GFR-MDRD 83; Glucose 149 mg/dL (83-110); Sodium 141 mmol/L (136-145)
--- NOTE | 2019-05-13 07:18 | PRG ---
DATE OF SERVICE: 05/13/2019 I met Mr. Steiner in the ICU this morning. I explained to him the findings on his imaging studies of his brain, cerebral vasculature, and his left-sided neurological deficits. I explained to him there is a small left-sided subdural hematoma that is nonoperative. With it at some point in the future, I may need to see him back as that expands. As for the management of the stroke and anticoagulants, I am going to leave that to the Medical Service and Neurology. I am sure followup CT scans will be ordered if anticoagulation or anti-platelet agents are used. Neurosurgery will be available for any calls or questions should this subdural hematoma enlarge. Job ID: [id number]
[2019-05-13] MEDS ORDERED: Aspirin 325 MG TAB PO SCH (09:00)
--- NOTE | 2019-05-13 09:34 | CON ---
DATE OF CONSULTATION: HISTORY OF PRESENT ILLNESS: Mr. Steiner is an 83-year-old male. Neurosurgery was consulted for him this morning following a new onset of left-sided slurred speech and left upper and lower extremity weakness. Mr. Steiner presented to the emergency department yesterday with AFib, shortness of breath, and cough. He has generalized weakness and reported a fall approximately 2 days ago. When I see him this morning, he is resting comfortably. He has just gotten back from CT. He is awake and alert. He does have some slurred speech. He complains of unable to move the left half of his body and has some numbness in the left side of his face. CT shows small subdural hematoma. CTA showed right-sided MCA occlusion. He is moving the right side of his body well. Normal range of motion. Normal strength. Normal sensation on the right. Cranial nerves II through XII are tested and intact other than some left-sided facial droop and numbness on the left as well. REVIEW OF SYSTEMS: A 10-point review of systems has been completed and is negative other than stated in the above HPI. ALLERGIES: NO KNOWN DRUG ALLERGIES. PAST MEDICAL HISTORY: Hyperlipidemia, hypercholesterol, hypertension, and chronic back pain. PAST SURGICAL HISTORY: Six back surgeries, hernia, right and left hip surgery, and appendectomy. SOCIAL HISTORY: The patient drinks socially. History of ethanol abuse. The patient denies smoking history. Lives in home alone. CURRENT MEDICATIONS: None. PHYSICAL EXAMINATION: VITAL SIGNS: Temperature 97.7, heart rate 126, blood pressure 128/106, respirations 22, and O2 saturations 99% on room air. CONSTITUTIONAL: The patient is alert and oriented. He does not appear to be toxic. He is afebrile, but he is hypertensive and has some congestion. HEENT: Head is normocephalic and atraumatic. Pupils are equal, round, and reactive to light. Extraocular movements are intact. Hearing is intact. Moist mucous membranes. RESPIRATIONS: Symmetric chest rise. Some congestion and cough. EXTREMITIES: Right upper and lower extremities have normal range of motion. Normal sensation. 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 Normal left side upper extremity, the patient has a small amount of some wiggle, otherwise unable to move the left upper extremity. Lower extremity, he is able to wiggle his toes and extend his knee against gravity, otherwise 2/5. NEUROLOGIC: The patient is awake, alert, and oriented. He has some slurring of his speech, but comprehensible. GCS of 15. Cranial nerves II through XII are tested and intact except for some facial droop and some decreased sensation on the left side. Normal fund of knowledge. Left-sided weakness and left-sided change in sensation. IMAGING DATA: CT of the brain, small left-sided convexities of acute subdural hematoma thickness, low-density chronic hematoma approximately 5 mm. No mass effect or midline shift. No evidence of acute hemorrhage. CTA of the brain had atherosclerotic changes without evidence of significant cervical vascular stenosis. CTA of the neck, no vascular occlusion, correlated with chest x-ray. CTA of the head, there is an abrupt occlusion of the proximal right M1 segment and short segment of occluded M1 segment likely related to thrombus, which is reconstituted visibly, although there is decreased filling of the M2 branches, particularly anterior. ASSESSMENT AND PLAN: Mr. Steiner is an 83-year-old male with new onset of left . He has a small chronic subdural hematoma. This is not the cause of his new weakness. The occlusion of the right middle cerebral artery is likely the issue. From a neurosurgical standpoint, he does not need surgical intervention at this time. Neurology needs to be consulted for decision-making on whether or not we need what type of anticoagulation and the best therapy. There are issues regarding the etiology of the occlusion for a paradoxical embolus and for an embolus from the heart. If this is myocardial infarction resulting from atrial fibrillation or very low ejection fraction or valvular disease, and perhaps that is warranted for anticoagulation for an artery to artery embolus like a carotid plaque, then it is not the first choice for intracranial stenosis that thrombosed locally due to low blood pressure from poor cardiac output or aggressive blood pressure lowering and also backup choice. There is obviously an increased risk of the subdural hemorrhage enlarging with anticoagulation and risk of stroke hemorrhaging on the other side and anticoagulation of choice is critical. Neurologist would know that large middle cerebral artery infarction will swell and that it is possible we could need to consider craniotomy in a few days Coumadin or certainly with one of the newer anticoagulations, this would delay any life-saving procedure the patient. Note that Neurology will weigh these facts carefully, consult the family and make a decision and judiciously and carefully lower the rate of heparin infusion and administration for modest bump in the PTT without and repeat CT scans regularly. If there are any further questions, please contact Neurosurgery. Job ID: [id number]
[2019-05-13] MEDS: Enoxaparin Sodium 100 MG/ML SYRINGE SC SCH ×2 (09:45→21:59)
[2019-05-13] MEDS: Aspirin 300 MG Suppository PR SCH (09:46)
--- NOTE | 2019-05-13 12:57 | RAD ---
EXAM: Single view of the abdomen HISTORY: History of spinal stimulator. MRI spinning mule tender COMPARISON: None FINDINGS: Single view of the abdomen shows a nonspecific, nonobstructive bowel gas pattern. No suspi cious calcifications are seen. The bones are unremarkable. Hardware is seen in the lumbar spine. No spinal stimulator is seen. There is malalignment of the left hip prosthesis. IMPRESSION: 1. No evidence of spinal stimulator 2. Abnormal appearance of the left hip prosthesis. A left hip radiograph is recommended for further e valuation.
[2019-05-13] MEDS: Digoxin 0.5 MG/2 ML AMP SLOW IVP SCH ×3 (13:41→15:49)
[2019-05-13] MEDS: Amiodarone 450 MG in Dextrose 5% in Water 250 ML IVPB SCH (13:47)
[2019-05-13] MEDS ORDERED: Digoxin 0.5 MG/2 ML AMP SLOW IVP SCH (14:00)
--- NOTE | 2019-05-13 14:36 | CT ---
CT HEAD WITHOUT CONTRAST: HISTORY: Follow up subdural hematoma. COMPARISON: 05/12/2019 FINDINGS: Hemorrhage: Redemonstration of a predominantly hypodense collection along the left frontal-temporal- parietal extra-axial space. This collection measures 0.8 cm. Mild mass effect upon the left cerebrum without significant sulcal effacement. There is no midline shift. No mass effect. Stable parenchyma. Cortical murcia-white matter differentiation is preserved. No mass effect or midline shift. Basilar cisterns are patent. There are stable hypodensities in the left and right periventri cular white matter, as well as along the right roberts radiata. Chronic small vessel ischemic changes are favored. Ventricular system: Ventricles and sulci are patent and symmetric. Note is made of a cavum septa pe llucidum and cavum vergae. Calvarium: IIntact. Sinuses and mastoid air cells: Adequate aeration. IMPRESSION: 1. Redemonstration of a left extra-axial hematoma, compatible with a chronic subdural hematoma. No evidence of acute hemorrhage. 2. No significant mass effect or midline shift. Transcribed Date/Time: 05/13/2019 4:35 PM
--- NOTE | 2019-05-13 15:11 | PRG ---
DATE OF SERVICE: 05/13/2019 SUBJECTIVE: Taco Steiner is still confused. OBJECTIVE: GENERAL: He is in no distress. VITAL SIGNS: He is afebrile. Heart rate is 117, blood pressure is 151/109. LUNGS: Clear. HEART: Regular rhythm. ABDOMEN: Soft and nontender. IMAGING STUDIES: Echocardiogram shows an ejection fraction of 20% to 25% with him in atrial fibrillation. IMPRESSION: 1. Rapid atrial fibrillation. 2. Systolic cardiomyopathy. 3. Small subdural. 4. Possible pneumonia. 5. Acute cerebrovascular accident. PLAN: We will follow the other physicians. Job ID: [id number]
[2019-05-13] MEDS ORDERED: Insulin Regular 300 UNITS/3 ML VIAL ONE (16:22)
[2019-05-13] MEDS: cefTRIAXone\\ROCEPHIN 2 GM in Sodium Chloride 0.9% 100 ML IVPB SCH (17:47)
[2019-05-13] MEDS: Azithromycin 250 MG in Sodium Chloride 0.9% 250 ML 250 ML IVPB SCH (20:14)
[2019-05-13] MEDS: hydrALAZINE 20 MG/ML VIAL SLOW IVP PRN (22:10)
[2019-05-14] MEDS: Lorazepam 2 MG/ML VIAL SLOW IVP PRN ×2 (01:13→03:32)
[2019-05-14] MEDS: hydrALAZINE 20 MG/ML VIAL SLOW IVP PRN ×2 (02:18→03:13)
[2019-05-14] MEDS ORDERED: Furosemide 40 MG/4 ML VIAL SLOW IVP SCH ×2 (03:30→14:00)
[2019-05-14] MEDS ORDERED: Labetalol HCl 100 MG/20 ML VIAL SLOW IVP SCH (03:30)
[2019-05-14 04:59] LABS: #Lymphocytes 1.9 thou/uL (1.20-3.40); #Monocytes 1.2 thou/uL (0.11-0.59); #Neutrophils 13.7 thou/uL (1.40-6.50); %Eosinophils 0.2 % (0.0-10.0); %Lymphocytes 11.5 % (21.0-51.0); %Neutrophils 81.3 % (42.0-75.0); Hemoglobin 13.8 g/dL (14.0-18.0); Mean Corpuscular HGB CONC 32.8 g/dL (32.0-36.0); Mean Corpuscular Hemoglobin 29.6 pg (27.0-31.0); Mean Corpuscular Volume 90.2 fL (78.0-98.0); Platelet Count 306 thou/uL (130-400); Red Blood Cell (RBC) Count 4.68 mill/uL (4.70-6.10); White Blood Cell (WBC) Count 16.8 thou/uL (4.8-10.8)
[2019-05-14 05:05] LABS: INR-International Normal Ratio 1.2; PTT 31.6 SEC (22.9-36.1); Prothrombin Time 15.3 SEC (12.0-14.7)
[2019-05-14 05:18] LABS: Anion Gap 15 mmol/L (10-20); BUN (Urea Nitrogen) 22 mg/dL (8.4-25.7); Calc. Creatinine Clearance 85 mL/min (70-130); Calcium 8.9 mg/dL (7.8-10.44); Carbon Dioxide 23 mmol/L (23-31); Chloride 105 mmol/L (98-107); Estimated GFR-MDRD 90; Glucose 166 mg/dL (83-110); Potassium 3.5 mmol/L (3.5-5.1); Sodium 139 mmol/L (136-145)
[2019-05-14] MEDS: Piperacillin/Tazobactam 3.375 GM in Sodium Chloride 0.9% 100 ML IVPB SCH ×4 (05:51→22:23)
[2019-05-14] MEDS: Scopolamine 1.5 mg/72 hour Patch TD SCH (05:53)
--- NOTE | 2019-05-14 06:19 | PDOC.FM ---
- Subjective Subjective: Overnight became A&O x0, tachycardic, secretions, agitated, hypertnesive. Receivied lasix x1, duonebs, labetalol, ativan. this morning sleepy, however responsive - Objective MAR Reviewed: Yes Vital Signs & Weight: Vital Signs (12 hours) Temp Pulse Resp BP Pulse Ox 05/14/19 04:23 71 25 H 98 05/14/19 03:59 98.5 F 05/14/19 03:54 96 05/14/19 03:38 123 H 189/154 H 05/14/19 03:13 97 181/126 H 05/14/19 02:18 97 181/126 H 05/14/19 00:00 98.2 F 05/13/19 22:10 97 197/92 H 05/13/19 20:00 98.0 F 05/13/19 19:59 97 Weight Admit Weight 87.09 kg Weight 86.1 kg Most Recent Monitor Data Heart Rate from ECG 78 NIBP 142/89 NIBP BP-Mean 106 Respiration from ECG 23 SpO2 99 I&O: 05/12/19 05/13/19 05/14/19 06:59 06:59 06:59 Intake Total 220 1788.4 718.5 Output Total 103 800 720 Balance 117 988.4 -1.5 Result Diagrams: 05/14/19 04:39 05/14/19 04:39 Phys Exam - Physical Examination Constitutional: NAD HEENT: moist MMs secretions Neck: no nodes end expiratory wheezing, crackles Cardiovascular: irregular Gastrointestinal: positive bowel sounds distended Musculoskeletal: no edema left upper and lower extrmeity weakness 1/5 Dx/Plan (1) CVA (cerebral vascular accident) Code(s): I63.9 - CEREBRAL INFARCTION, UNSPECIFIED Status: Acute (2) Subdural hematoma, chronic Code(s): I62.03 - NONTRAUMATIC CHRONIC SUBDURAL HEMORRHAGE Status: Acute (3) Atrial fibrillation with RVR Code(s): I48.91 - UNSPECIFIED ATRIAL FIBRILLATION Status: Acute (4) Community acquired pneumonia Code(s): J18.9 - PNEUMONIA, UNSPECIFIED ORGANISM Status: Acute Qualifiers: Laterality: unspecified laterality Qualified Code(s): J18.9 - Pneumonia, unspecified organism (5) CAD (coronary artery disease) Code(s): I25.10 - ATHSCL HEART DISEASE OF [place] CORONARY ARTERY W/O ANG PCTRS Status: Chronic Qualifiers: Coronary Disease-Associated Artery/Lesion type: unspecified vessel or lesion type [place] vs. transplanted heart: [place] heart Associated angina: angina presence unspecified Qualified Code(s): I25.10 - Atherosclerotic heart disease of [place] coronary artery without angina pectoris (6) Altered mental status Code(s): R41.82 - ALTERED MENTAL STATUS, UNSPECIFIED Status: Acute Qualifiers: Altered mental status type: disorientation Qualified Code(s): R41.0 - Disorientation, unspecified (7) Depression Code(s): F32.9 - MAJOR DEPRESSIVE DISORDER, SINGLE EPISODE, UNSPECIFIED Status : Chronic (8) GERD (gastroesophageal reflux disease) Code(s): K21.9 - GASTRO-ESOPHAGEAL REFLUX DISEASE WITHOUT ESOPHAGITIS Status: Chronic - Plan Plan: 83yo M with h/o paroxysmal afib in 2013, CAD, HTN, and HLD who presents for weakness found to have afib with RVR #Afib with RVR - Rate controlled on amio & dilt gtt & dixogin. - Therapeutic lovenox (also for R MCA clot) - Likely from new onset systolic heart failure in setting of HFpEF - Cardiology on board, recs appreciated #Sepsis 2/2 aspiration vs. community acquired pneumonia - CTA - Right pulm infiltrate, serial CXR - continue vanc & zosyn, bcx negative, however NPO so continue IV abx with eventual oral transition - WBC trending down, afebrile - Dr. May on board, recs appreciated #Indeterminate troponin - likely demand ischemia from afib with RVR. Has hx of CAD - Trops downtrendin.065 > 0.067 > 0.055 - EKG no acute T wave or ST changes - Continue clinically monitoring, reobtain EKG, new set of trops if experiencing new CP #New onset systolic heart failure -TTE with EF 20-25%, start on estela lasix, strict I/O #Encephalopathy, medication induced -ABG with 7. -AMS likely from ativan, hold for now -will call to inquire about alcohol history, hold ASE protocol to avoid ativan #CVA with Left-sided Weakness - Mercedes Ramos called @ 0600 on 05/12/19 - repeat CT head with chronic subdural hematoma, neurosurg/neurology consulted - CT angio: 4.6 mm focal clot in right MCA - On therapeutic lovenox -neurosurg- no surgical intervention at this time, brain MRI this AM, if unable to obtain will need CT head to assess subdural hematoma #COPD exacerbation -estela duonebs -steroids -ABG values WNL #Subdural hematoma, chronic -see plan above #HTN - prn hydralazine # H/o Alcohol Abuse - unsure history - clinically monitor # Elevated D- Dimer, resolved - D-dimer 1.68 - CTA negative for PE VTE:th lovenox Diet: HH Code: Full Lines: left wrist peripheral, right AC peripheral Summary: 1)Afib with RVR: persistent afib but rate controlled with amio and dilt gtt. Digoxin started. Continue monitoring. Likely from new onset systolic heart failure. Anticoag with lovenox. Cards recs appreciated. 2) New onset systolic heart failure- CXR with pulm congestion. Start 80mg lasix BID, monitor. 3) Suspected PNA (aspiration vs. CAP) vs. pneumonitis- changed to zosyn and azithromycin to cover anaerobes. Bcx NGTD. Will obtain procal. Monitor for worsening. 4) Acute CVA- On lovenox. Statin held due to NPO status. MRI brain? Out of time window, appreciate neuro recs on this. 5) Chronic subdural hematoma- CT today with no change. Continue serial imaging. Neurosurg/neuro recs appreciated in regards to frequency. On anticoag for R MCA occlusion/clot so must monitor for re-hemorrhage. 6) Encephalopathy-likely ativan induced. 7) COPD exacerbation- ESTELA duonebs & solumedrol Discussed w/ Dr. Cleveland Addendum - Attending - Attending Attestation Date/Time: 05/14/19 3065 I personally evaluated the patient and discussed the management with Dr. Johnson I agree with the History, Examination, Assessment and Plan documented above with any addition or exceptions noted below. Complicated case of new onset AF with RVR with acute ischemic CVA( R MCA occlusion) in setting of HFrEF and small subdural hematoma. Patient on lovenox with bleeding risk well noted and is being appropriately monitored. Still dense right hemiparesis seemed obtunded s/p ativan earlier this AM . If worsened respiratory decline would not be ideal candidate for non-invasive ventilation and would require intubation to protect airway most likely. Patient needs continued observation and would hold excessive sedation aware of some concerns for alcohol withdrawal. Heart rate controlled diltiazem infusion and amiodarone noted rate responsive to BB as well. ABX coverage for asp PNA and nebs started. Family Out of State will continue to update status and severity of patients condition. Appreciate recommendations of Critical Care, Cardiology, Neurology and Neurosurgery in this precarious case.
--- NOTE | 2019-05-14 08:03 | RAD ---
EXAM: CHEST ONE VIEW HISTORY: Patient with subdural hematoma. Concern for aspiration. COMPARISON: 05/11/2019 FINDINGS: Cardiac silhouette is magnified by projection. Pulmonary vasculature is mildly increased and similar to prior exam. There are mild patchy parenchymal densities seen in the perihilar regions bilaterally predominantly at each lung base and in the midlung zones which could be related to asymme tric pulmonary edema versus infectious process. No pleural effusion is seen. Vascular calcifications are seen in the thoracic aorta. Degenerative changes are seen in the spine. No other i nterval change. IMPRESSION: 1. Interval development of mild patchy densities seen in the midlung zones and at each lung base and a perihilar location. Findings may be related to either asymmetric pulmonary edema versus infectious process. Follow-up to resolution is recommended. Aspiration pneumonitis cannot be entirely excluded. 2. Mild pulmonary vascular congestion.
--- NOTE | 2019-05-14 09:27 | CT ---
CT HEAD WITHOUT CONTRAST: INDICATIONS: Intracranial hemorrhage. Followup. FINDINGS: There is a persistent slightly hyperdense CSF collection overlying the left convexity, grossly stable , 6 to 7 mm in thickness, overlying the posterior left convexity. The cavum septum pellucidum et chantel gae is present. The ventricular system is normal in size for the patient's age. There is mild chron ic ischemic disease and parenchymal volume loss. IMPRESSION: Stable head CT with persistent slight increased density relative to cerebrospinal fluid overlying the left convexity, most consistent with a chronic subdural hematoma. No significant mass effect or mid line shift. POS: TPC
[2019-05-14 09:40] LABS: Actual Bicarbonate (HCO3a) 26.1 mEq/L (22-28); Base Excess (BEa) 2.9 mEq/L (-2.0 to +3.0); CO2 Tension 35.7 mmHg (35.0-45.0); Calcium, Ionized 1.14 mmol/L (1.12-1.30); Carboxyhemoglobin (COHb) 1.1 gm% (0.0-3.0); Hemoglobin (Hb) 13.8 g/dL (14.0-18.0); Potassium - ABG Lab 3.53 mmol/L (3.70-5.30); pH, Arterial 7.48 (7.35-7.45)
[2019-05-14 09:41] LABS: ALV-art Gradient 35.105 (0-20); Puncture Site LRA
[2019-05-14] MEDS: Digoxin 0.5 MG/2 ML AMP SLOW IVP SCH (10:27)
[2019-05-14] MEDS: Aspirin 300 MG Suppository PR SCH (10:27)
[2019-05-14] MEDS: Enoxaparin Sodium 100 MG/ML SYRINGE SC SCH ×2 (10:28→22:22)
[2019-05-14] MEDS: methylPREDNISolone Sod Succ 40 MG VIAL IVP SCH ×3 (10:28→22:15)
[2019-05-14] MEDS: Furosemide 40 MG/4 ML VIAL SLOW IVP SCH (14:23)
--- NOTE | 2019-05-14 17:33 | PRG ---
DATE OF SERVICE: 05/14/2019 SUBJECTIVE: Taco Steiner has been more somnolent today after receiving Ativan last night. He had a repeat head CT today that showed his chronic subdural, but there is no midline shift or mass effect. OBJECTIVE: LUNGS: Clear. HEART: Regular rhythm. ABDOMEN: Soft. LABORATORY DATA: White count 16.8, hemoglobin 13.8, and platelets 306,000. Electrolytes are normal. Blood gas showed a pH of 7.48, pCO2 of 35, and pO2 of 70. IMPRESSION: Encephalopathy with somnolence secondary to benzodiazepines. These have been discontinued. I would use Haldol at night for agitation. We will continue to follow in the critical care unit. Job ID: [id number]
[2019-05-14] MEDS: Azithromycin 250 MG in Sodium Chloride 0.9% 250 ML 250 ML IVPB SCH (22:12)
[2019-05-14] MEDS: Famotidine/PF 20 mg/2ml Vial SLOW IVP SCH (22:15)
[2019-05-15] MEDS: Haloperidol Lactate 5 MG/ML VIAL IM PRN ×2 (00:26→13:37)
[2019-05-15] MEDS: methylPREDNISolone Sod Succ 40 MG VIAL IVP SCH (03:40)
[2019-05-15] MEDS: Furosemide 40 MG/4 ML VIAL SLOW IVP SCH ×2 (06:09→13:22)
[2019-05-15] MEDS: Piperacillin/Tazobactam 3.375 GM in Sodium Chloride 0.9% 100 ML IVPB SCH ×4 (06:10→23:44)
[2019-05-15 06:33] LABS: #Monocytes 0.5 thou/uL (0.11-0.59); #Neutrophils 10.5 thou/uL (1.40-6.50); %Basophils 0.1 % (0.0-1.0); %Eosinophils 0.4 % (0.0-10.0); %Lymphocytes 8.2 % (21.0-51.0); %Monocytes 4.3 % (0.0-10.0); %Neutrophils 87.2 % (42.0-75.0); Hemoglobin 13.7 g/dL (14.0-18.0); Mean Corpuscular HGB CONC 32.6 g/dL (32.0-36.0); Mean Corpuscular Hemoglobin 29.7 pg (27.0-31.0); Mean Corpuscular Volume 91.3 fL (78.0-98.0); Mean Platelet Volume 8.5 fL (7.4-10.4); Platelet Count 240 thou/uL (130-400); RBC Distribution Width 14.1 % (11.5-14.5); Red Blood Cell (RBC) Count 4.61 mill/uL (4.70-6.10); White Blood Cell (WBC) Count 12.1 thou/uL (4.8-10.8)
[2019-05-15 06:35] LABS: INR-International Normal Ratio 1.2; PTT 34.2 SEC (22.9-36.1); Prothrombin Time 15.3 SEC (12.0-14.7)
[2019-05-15 06:53] LABS: Anion Gap 13 mmol/L (10-20); BUN (Urea Nitrogen) 22 mg/dL (8.4-25.7); Calc. Creatinine Clearance 93 mL/min (70-130); Calcium 8.9 mg/dL (7.8-10.44); Carbon Dioxide 25 mmol/L (23-31); Chloride 106 mmol/L (98-107); Estimated GFR-MDRD 90; Glucose 159 mg/dL (83-110); Potassium 3.5 mmol/L (3.5-5.1); Sodium 140 mmol/L (136-145)
--- NOTE | 2019-05-15 07:50 | PDOC.FM ---
- Subjective Subjective: Patient agitate overnight, had restraints and mitts put on in attempt to pull out lines. Yesterday talked with daughter about current health state, rediscussed code status-FULL for now. She plans on coming down today - Objective Vital Signs & Weight: Vital Signs (12 hours) Temp Pulse Resp Pulse Ox 05/15/19 06:46 126 H 22 H 100 05/15/19 04:00 98.8 F 05/15/19 00:00 98.6 F 05/14/19 23:00 96 05/14/19 20:00 99 Weight Admit Weight 87.09 kg Weight 95 kg Most Recent Monitor Data Heart Rate from ECG 77 NIBP 137/72 NIBP BP-Mean 93 Respiration from ECG 16 SpO2 96 I&O: 05/14/19 05/15/19 05/16/19 06:59 06:59 06:59 Intake Total 718.5 1143 Output Total 720 2655 Balance -1.5 -1512 Result Diagrams: 05/15/19 06:02 05/15/19 06:02 Phys Exam - Physical Examination somnolent, maintaining airway HEENT: PERRLA, moist MMs, sclera anicteric Neck: no nodes end expiratory wheezing Cardiovascular: no significant murmur tachycardic Gastrointestinal: soft, non-tender, positive bowel sounds Musculoskeletal: no edema left facial droop, LUE and LLE motor none to 1/5 GCS 12 Dx/Plan (1) CVA (cerebral vascular accident) Code(s): I63.9 - CEREBRAL INFARCTION, UNSPECIFIED Status: Acute (2) Subdural hematoma, chronic Code(s): I62.03 - NONTRAUMATIC CHRONIC SUBDURAL HEMORRHAGE Status: Acute (3) Atrial fibrillation with RVR Code(s): I48.91 - UNSPECIFIED ATRIAL FIBRILLATION Status: Acute (4) Community acquired pneumonia Code(s): J18.9 - PNEUMONIA, UNSPECIFIED ORGANISM Status: Acute Qualifiers: Laterality: unspecified laterality Qualified Code(s): J18.9 - Pneumonia, unspecified organism (5) CAD (coronary artery disease) Code(s): I25.10 - ATHSCL HEART DISEASE OF [place] CORONARY ARTERY W/O ANG PCTRS Status: Chronic Qualifiers: Coronary Disease-Associated Artery/Lesion type: unspecified vessel or lesion type [place] vs. transplanted heart: [place] heart Associated angina: angina presence unspecified Qualified Code(s): I25.10 - Atherosclerotic heart disease of [place] coronary artery without angina pectoris (6) Altered mental status Code(s): R41.82 - ALTERED MENTAL STATUS, UNSPECIFIED Status: Acute Qualifiers: Altered mental status type: disorientation Qualified Code(s): R41.0 - Disorientation, unspecified (7) Depression Code(s): F32.9 - MAJOR DEPRESSIVE DISORDER, SINGLE EPISODE, UNSPECIFIED Status : Chronic (8) GERD (gastroesophageal reflux disease) Code(s): K21.9 - GASTRO-ESOPHAGEAL REFLUX DISEASE WITHOUT ESOPHAGITIS Status: Chronic - Plan Plan: 83yo M with h/o paroxysmal afib in 2014, CAD, HTN, and HLD here for acute encephalopathy, CHF exacerbation, acute CVA, chronic subdural hematoma, afib wtih RVR #Encephalopathy, worsening -ABG with 7. -ddx: ativan vs. ischemic stroke vs. delirium -check TSH/HIV/RPR/Ammonia -CT brain (05/14)-stable, no acute findings -Will discuss with neurology about MRI brain/LP -NPO, will start dobhoff feeds #Afib with RVR - Afib but rate controlled on amio & dilt gtt & dixogin. - Therapeutic lovenox (also for R MCA clot) - Likely from new onset systolic heart failure in setting of HFpEF - Cardiology on board, recs appreciated #Sepsis 2/2 aspiration vs. community acquired pneumonia - CTA - Right pulm infiltrate: aspiration PNA vs. pneumonitis vs. CAP - WBC improving on azithromycin & zosyn, bcx NGTD, continue IV abx since [employer] - Dr. May on board, recs appreciated #New onset systolic heart failure -TTE with EF 20-25%, start on [place] lasix, strict I/O #CVA with Left-sided Weakness - [facility] [place] called @ 0600 on 05/12/19 - repeat CT head with chronic subdural hematoma, neurosurg/neurology consulted - CT angio: 4.6 mm focal clot in right MCA - On therapeutic lovenox -neurosurg- no surgical intervention at this time, brain MRI this AM, if unable to obtain will need CT head to assess subdural hematoma #COPD exacerbation -[place] duonebs -steroids -ABG values WNL #Subdural hematoma, chronic -see plan above #HTN - prn hydralazine # H/o Alcohol Abuse - unsure history - clinically monitor, ASE protocol # Elevated D- Dimer, resolved - D-dimer 1.68 - CTA negative for PE #Indeterminate troponin - likely demand ischemia from afib with RVR. Has hx of CAD - Trops downtrendin.065 > 0.067 > 0.055 - EKG no acute T wave or ST changes - Continue clinically monitoring, reobtain EKG, new set of trops if experiencing new CP VTE:th lovenox Diet: dobhoff feeds Code: Full Lines: left wrist peripheral, right AC peripheral Summary: 1)Afib with RVR: persistent afib but rate controlled with amio and dilt gtt and dixogin. Likely from new onset systolic heart failure. Anticoag with lovenox. Cards recs appreciated. 2) New onset systolic heart failure- CXR with pulm congestion. Start 80mg lasix BID, monitor, continue diuresis 3) Suspected PNA ( aspiration vs. CAP) vs. pneumonitis- changed to zosyn and azithromycin to cover anaerobes. Bcx NGTD. Monitor for worsening. 4) Acute CVA- On lovenox. Statin held due to NPO status. 5) Chronic subdural hematoma-CT today with no change. Continue serial imaging. Neurosurg/neuro recs appreciated in regards to frequency. On anticoag for R MCA occlusion/clot so must monitor for re- hemorrhage. 6) Encephalopathy-Benzo induced vs. other. Workup for this. May be reinfarct but already on anticoagulation. Will check for infectious etiologies. Consider LP/Brain MRI. Will discuss with neuro. 7) COPD exacerbation- [place] duonebs & solumedrol Discussed w/ Dr. Willard Addendum - Attending - Attending Attestation Date/Time: 05/15/19 6612 I personally evaluated the patient and discussed the management with Dr. Johnson. I agree with the History, Examination, Assessment and Plan documented above with any addition or exceptions noted below. I am concerned the CVA is the cause for his mental status change. Looking into metabolic causes as well.
[2019-05-15] MEDS: Enoxaparin Sodium 100 MG/ML SYRINGE SC SCH ×2 (10:04→20:27)
[2019-05-15] MEDS: Aspirin 300 MG Suppository PR SCH (10:04)
[2019-05-15] MEDS: Famotidine/PF 20 mg/2ml Vial SLOW IVP SCH ×2 (10:04→20:27)
[2019-05-15] MEDS: Digoxin 0.5 MG/2 ML AMP SLOW IVP SCH (10:17)
[2019-05-15] MEDS: methylPREDNISolone Sod Succ/PF 125 MG/2 ML VIAL IVP SCH ×2 (10:53→15:58)
[2019-05-15 12:51] LABS: ALT (SGPT) 29 U/L (8-55); AST (SGOT) 22 U/L (5-34); Albumin 3.8 g/dL (3.4-4.8); Alkaline Phosphatase 94 U/L (40-150); Bilirubin, Direct 0.6 mg/dL (0.1-0.3); Protein, Total 7.3 g/dL (5.8-8.1)
--- NOTE | 2019-05-15 13:08 | RAD ---
PORTABLE CHEST: Date: 05/15/19 HISTORY: Shortness of breath. CCU follow-up. COMPARISON: 05/14/19. FINDINGS/IMPRESSION: Vascular congestion and edema has improved when compared to yesterday's exam. Lungs show better aerat ion without significant congestive change seen today. Small effusions and bibasilar atelectasis may b e present. POS: OFF
[2019-05-15 13:09] LABS: Syphilis Antibody Nonreactive (Nonreactive); Syphilis Antibody Index 0.08 S/CO (<1.00 Non-Reactive)
[2019-05-15 13:41] LABS: HIV (1/2) Antibody/Antigen Non-Reactive (NonReactive); HIV 1/2 INDEX 0.09 S/CO (<1.00); Thyroid Stimulating Hormone 0.7594 uIU/mL (0.35-4.94)
[2019-05-15] MEDS ORDERED: Amiodarone 150 MG, Admixture Fee 1 EACH in Dextrose 5% in Water 100 ML IVPB SCH (15:30)
--- NOTE | 2019-05-15 16:18 | RAD ---
SUPINE ABDOMEN: Date: 05/15/19 INDICATION: Assess Dobbhoff placement. FINDINGS/IMPRESSION: Dobbhoff feeding tube overlies the left upper quadrant and would reside in the upper gastric fundus. Suggest advancing into the antrum for feeding purposes. Bowel gas pattern unremarkable. POS: OFF
--- NOTE | 2019-05-15 16:26 | ULT ---
BILATERAL LOWER EXTREMITY ARTERIAL DOPPLER STUDY: 05/15/19 INDICATIONS: Cold foot. Arteries of both lower extremities evaluated with ultrasound Doppler including color Doppler with spe ctral analysis and velocity recordings. Right lower extremity: There is biphasic waveforms seen in the right common femoral artery, profunda, superficial femoral, p opliteal, anterior tibial artery, and posterior tibial artery. Velocities appear symmetric throughout these vessels. The dorsal pedis artery is not identified. Left lower extremity: Biphasic waveforms seen in the left common femoral artery, profunda, superficial femoral artery. Belo w the superficial femoral artery, there is a monophasic waveform seen in the popliteal, anterior tibi al, and posterior tibial. Significant increased velocity in the popliteal suggests focal stenosis. Dorsal pedis is not identified. IMPRESSION: Evidence of severe peripheral arterial disease below the knee on the left with increased velocities i n the left popliteal suggesting high grade stenosis. Monophasic waveforms seen below this level. POS: OFF
--- NOTE | 2019-05-15 18:24 | PRG ---
DATE OF SERVICE: 05/15/2019 SUBJECTIVE: Taco Steiner remains encephalopathic, but he has improved compared to yesterday. He received no benzodiazepines last night. OBJECTIVE: VITAL SIGNS: Heart rate is 118, blood pressure 153/77, respiratory rate is 20, oximetry is 99 to 100. LUNGS: Remarkable for coarse equal breath sounds. HEART: Regular rhythm. ABDOMEN: Soft. LABORATORY DATA: White count 12.1, hemoglobin 13.7, platelets 240. Electrolytes are normal. IMPRESSION: Encephalopathy. He has noted his left lower extremity is cool compared to his right. Lower extremity arterial ultrasound showed evidence of severe peripheral vascular disease below the knee on the left with high-grade left popliteal stenosis. He does not have an ischemic foot at this point in time clinically, so there is probably no reason to get Vascular Surgery involved at this point, but someone will need to be followed. He had a Dobbhoff tube placed because of his inability to clinically swallow. Tube is in the stomach. He is intermittently having problems with secretions. We had a scopolamine patch yesterday. He probably does not need high-dose steroids, especially with his encephalopathy at this point. I would decrease his steroid dosing and see if his encephalopathy improves. He is really not acutely bronchospastic at this time in my opinion. PLAN: He will continue with nebulizer treatments. Continue with attempts to control his blood pressure and treat his encephalopathy with Haldol if he . He continues on amiodarone. He needs to remain in the critical care unit for now in my opinion. Job ID: [id number]
[2019-05-15] MEDS: Amiodarone 450 MG, Admixture Fee 1 EACH in Dextrose 5% in Water 250 ML IVPB SCH (18:39)
[2019-05-15] MEDS: Azithromycin 250 MG in Sodium Chloride 0.9% 250 ML 250 ML IVPB SCH (20:26)
--- NOTE | 2019-05-15 21:14 | RAD ---
RADIOGRAPH CHEST 1 VIEW: DATE: 05/15/2019 TIME: 8:49 PM HISTORY: 83-year-old male status post Dobbhoff feeding tube advancement. COMPARISON: chest radiograph of 05/15/2019 10:50 AM KUB of 05/15/2019 2:59 PM FINDINGS: Dobbhoff feeding tube distal tip is pointing superolaterally at the left upper quadrant, in the lower fundus of the stomach, unchanged compared to the KUB, new compared to the chest radiograph. There is no other interval change in the chest radiograph. Mild patchy infiltrate-like densities, faint, in the right mid and lower lung zones, and to a lesser degree left lower lung zone. Upper lung zones are clear. IMPRESSION: Dobbhoff feeding tube remains in fundus of stomach.
[2019-05-15] MEDS ORDERED: Dextrose 50% Abboject 50 ML SYRINGE SLOW IVP PRN (23:38)
[2019-05-15] MEDS ORDERED: Dextrose 5% in Water 1,000 ML IV PRN (23:38)
[2019-05-16] MEDS: Amiodarone 450 MG, Admixture Fee 1 EACH in Dextrose 5% in Water 250 ML IVPB SCH ×2 (03:28→12:07)
[2019-05-16 04:54] LABS: INR-International Normal Ratio 1.1; PTT 29.2 SEC (22.9-36.1); Prothrombin Time 14.3 SEC (12.0-14.7)
[2019-05-16 05:11] LABS: ALT (SGPT) 33 U/L (8-55); AST (SGOT) 28 U/L (5-34); Albumin 3.7 g/dL (3.4-4.8); Alkaline Phosphatase 92 U/L (40-150); Anion Gap 15 mmol/L (10-20); BUN (Urea Nitrogen) 25 mg/dL (8.4-25.7); Bilirubin, Total 1.1 mg/dL (0.2-1.2); Calc. Creatinine Clearance 67 mL/min (70-130); Calcium 9.4 mg/dL (7.8-10.44); Carbon Dioxide 28 mmol/L (23-31); Chloride 100 mmol/L (98-107); Estimated GFR-MDRD 63; Globulin 3.3 g/dL (2.4-3.5); Glucose 204 mg/dL (83-110); Sodium 140 mmol/L (136-145)
[2019-05-16 05:16] LABS: Band 1 % (5-11); Hemoglobin 16.1 g/dL (14.0-18.0); Lymphocytes 4 % (21-51); MDiff Complete? YES; Mean Corpuscular HGB CONC 32.3 g/dL (32.0-36.0); Mean Corpuscular Hemoglobin 29.1 pg (27.0-31.0); Mean Corpuscular Volume 90.3 fL (78.0-98.0); Mean Platelet Volume 8.5 fL (7.4-10.4); Monocytes 1 % (0-10); Neutrophil 94 % (42-75); Platelet Count 320 thou/uL (130-400); Platelet Morphology Comment Appears Adequate; Potassium 2.9 mmol/L (3.5-5.1); RBC Distribution Width 14.1 % (11.5-14.5); RBC Morphology Normal; Red Blood Cell (RBC) Count 5.52 mill/uL (4.70-6.10); White Blood Cell (WBC) Count 18.4 thou/uL (4.8-10.8)
[2019-05-16] MEDS: Piperacillin/Tazobactam 3.375 GM in Sodium Chloride 0.9% 100 ML IVPB SCH (06:34)
[2019-05-16] MEDS: HumaLOG 300 UNITS/3 ML VIAL SC PRN ×2 (06:35→15:32)
--- NOTE | 2019-05-16 07:10 | PDOC.FM ---
- Subjective Subjective: Patient agitated overnight. Improvement in mental status when daughter in room - Objective MAR Reviewed: Yes Vital Signs & Weight: Vital Signs (12 hours) Temp Pulse Ox 05/16/19 04:00 98.7 F 05/16/19 00:00 98.6 F 05/15/19 20:00 97.4 F L 100 Weight Admit Weight 87.09 kg Weight 92.2 kg Most Recent Monitor Data Heart Rate from ECG 109 NIBP 160/113 NIBP BP-Mean 128 Respiration from ECG 18 SpO2 99 I&O: 05/15/19 05/16/19 05/17/19 06:59 06:59 06:59 Intake Total 1143 1548 Output Total 2655 8115 Balance -1512 -2087 Result Diagrams: 05/16/19 04:29 05/16/19 04:29 Phys Exam - Physical Examination Constitutional: NAD disoriented secretions RLL crackles Cardiovascular: irregular tachycardic Gastrointestinal: soft, non-tender, positive bowel sounds mild distension Musculoskeletal: no edema cool LLE left facial droop, LUE/LLE weakness, speech garbled Deviation from normal: A&O x1 Dx/Plan (1) CVA (cerebral vascular accident) Code(s): I63.9 - CEREBRAL INFARCTION, UNSPECIFIED Status: Acute (2) Subdural hematoma, chronic Code(s): I62.03 - NONTRAUMATIC CHRONIC SUBDURAL HEMORRHAGE Status: Acute (3) Atrial fibrillation with RVR Code(s): I48.91 - UNSPECIFIED ATRIAL FIBRILLATION Status: Acute (4) Community acquired pneumonia Code(s): J18.9 - PNEUMONIA, UNSPECIFIED ORGANISM Status: Acute Qualifiers: Laterality: unspecified laterality Qualified Code(s): J18.9 - Pneumonia, unspecified organism (5) CAD (coronary artery disease) Code(s): I25.10 - ATHSCL HEART DISEASE OF [place] CORONARY ARTERY W/O ANG PCTRS Status: Chronic Qualifiers: Coronary Disease-Associated Artery/Lesion type: unspecified vessel or lesion type [place] vs. transplanted heart: [place] heart Associated angina: angina presence unspecified Qualified Code(s): I25.10 - Atherosclerotic heart disease of [place] coronary artery without angina pectoris (6) Altered mental status Code(s): R41.82 - ALTERED MENTAL STATUS, UNSPECIFIED Status: Acute Qualifiers: Altered mental status type: disorientation Qualified Code(s): R41.0 - Disorientation, unspecified (7) Depression Code(s): F32.9 - MAJOR DEPRESSIVE DISORDER, SINGLE EPISODE, UNSPECIFIED Status : Chronic (8) GERD (gastroesophageal reflux disease) Code(s): K21.9 - GASTRO-ESOPHAGEAL REFLUX DISEASE WITHOUT ESOPHAGITIS Status: Chronic - Plan Plan: 83yo M with h/o paroxysmal afib in 2014, CAD, HTN, and HLD here for acute encephalopathy, CHF exacerbation, acute CVA, chronic subdural hematoma, afib wtih RVR #Encephalopathy, likely sundowning -ABG with 7. -ddx: ativan vs. ischemic stroke vs. delirium -CT brain (05/14)-stable, no acute findings -Will discuss with neurology about MRI brain/LP -Dobhoff feeds, speech swallow when more awake/aware -reorientation measures, haldol PRN for agitation #Afib with RVR - Afib but rate controlled on amio & dixogin. - Therapeutic lovenox (also for R MCA clot) - Likely from new onset systolic heart failure in setting of HFpEF - Cardiology on board, recs appreciated #Sepsis 2/2 aspiration vs. community acquired pneumonia - CTA - Right pulm infiltrate: aspiration PNA vs. pneumonitis vs. CAP - WBC improving on azithromycin & zosyn, bcx NGTD, continue IV abx since [facility] - Dr. May on board, recs appreciated #New onset systolic heart failure -TTE with EF 20-25%, start on [place] lasix, strict I/O #CVA with Left-sided Weakness - Code Green called @ 0600 on 05/12/19 - repeat CT head with chronic subdural hematoma, neurosurg/neurology consulted - CT angio: 4.6 mm focal clot in right MCA - On therapeutic lovenox -neurosurg- no surgical intervention at this time, CT head if acute change in mental status #COPD exacerbation -[place] duonebs -steroids -ABG values WNL #PVD of LLE -on arterial imaging -no surgical intervention at this time, continue monitoring #Subdural hematoma, chronic -see plan above #HTN - prn hydralazine # H/o Alcohol Abuse - unsure history - clinically monitor, ASE protocol # Elevated D- Dimer, resolved - D-dimer 1.68 - CTA negative for PE #Indeterminate troponin - likely demand ischemia from afib with RVR. Has hx of CAD - Trops downtrendin.065 > 0.067 > 0.055 - EKG no acute T wave or ST changes - Continue clinically monitoring, reobtain EKG, new set of trops if experiencing new CP VTE:th lovenox Diet: dobhoff feeds Code: Full Lines: left wrist peripheral, right AC peripheral Summary: 1)Afib with RVR: persistent afib but rate controlled with amio and dixogin. Dilt discontinued. Likely from new onset systolic heart failure. Anticoag with lovenox. Cards recs appreciated. 2) New onset systolic heart failure- CXR with pulm congestion. Start 80mg lasix BID, monitor, continue diuresis 3) Suspected PNA (aspiration vs. CAP) vs. pneumonitis- changed to zosyn and azithromycin to cover anaerobes. Bcx NGTD. Monitor for worsening. 4) Acute CVA- On lovenox. Statin held due to NPO status. Dobhoff feeds. 5) Chronic subdural hematoma- Past few CTs stable. Obtain imaging if acute worsening in status. Neurosurg/ neuro recs appreciated in regards to frequency. On anticoag for R MCA occlusion /clot so must monitor for re-hemorrhage. 6) Encephalopathy-Benzo induced vs. sundowning. Pending MRI brain. Continue reorientation measures. Haldol PRN 7) COPD exacerbation- [place] duonebs & solumedrol 7) Hyper glycemia, sliding scale Discussed w/ Dr. Willard Addendum - Attending - Attending Attestation Date/Time: 05/16/19 1770 I personally evaluated the patient and discussed the management with Dr. Johnson. I agree with the History, Examination, Assessment and Plan documented above with any addition or exceptions noted below.
[2019-05-16] MEDS ORDERED: Furosemide 40 MG/4 ML VIAL SLOW IVP SCH ×2 (07:13→07:30)
[2019-05-16] MEDS ORDERED: Potassium Chloride 80 MEQ in Premix Bag 1 BAG IVPB SCH (07:15)
[2019-05-16] MEDS: Labetalol HCl 100 MG/20 ML VIAL SLOW IVP PRN (07:32)
[2019-05-16] MEDS: Amoxicillin/Potassium Clav 875 MG TAB PER TUBE SCH ×2 (09:43→21:09)
[2019-05-16] MEDS: Aspirin 300 MG Suppository PR SCH (09:43)
[2019-05-16] MEDS: Potassium Chloride 20 MEQ TAB PO SCH ×2 (09:43→17:29)
[2019-05-16] MEDS: Famotidine/PF 20 mg/2ml Vial SLOW IVP SCH ×2 (09:43→21:08)
[2019-05-16] MEDS: Digoxin 0.5 MG/2 ML AMP SLOW IVP SCH (09:44)
[2019-05-16] MEDS: methylPREDNISolone Sod Succ 40 MG VIAL IVP SCH ×2 (09:46→22:06)
[2019-05-16] MEDS: Metoprolol Tartrate 5 MG/5 ML VIAL IVP SCH ×3 (09:51→21:08)
[2019-05-16] MEDS: Enoxaparin Sodium 100 MG/ML SYRINGE SC SCH ×2 (09:52→21:09)
[2019-05-16] MEDS: Furosemide 40 MG/4 ML VIAL SLOW IVP SCH (10:10)
--- NOTE | 2019-05-16 10:11 | RAD ---
FRONTAL VIEW CHEST: INDICATIONS: Pulmonary congestion. COMPARISON: Exam from the previous day. FINDINGS: There is bilateral alveolar as well as interstitial opacification, predominantly perihilar in distrib ution. There is an enlarged cardiac silhouette, along with prominence of the pulmonary vasculature. A Dobhoff feeding tube is again seen with a metallic stylette at the left upper quadrant. Extrinsic artifacts limit detail. Hazy density at the inferior right chest may relate to superimposed mild vo lume of pleural fluid. IMPRESSION: Findings favor fluid overload and may be cardiogenic, given the appearance of the cardiac silhouette. Continued followup is recommended. POS: [facility]
[2019-05-16] MEDS: hydrALAZINE 20 MG/ML VIAL SLOW IVP PRN ×2 (11:06→22:23)
[2019-05-16 14:35] LABS: Potassium 3.3 mmol/L (3.5-5.1)
--- NOTE | 2019-05-16 14:43 | PRG ---
DATE OF SERVICE: 05/16/2019 SUBJECTIVE: Taco Steiner is still encephalopathic. He is in no distress. His arterial ultrasounds of his lower extremity showed severe peripheral vascular disease yesterday. There are no therapeutic options with regards to his lower extremities. OBJECTIVE: HEAD AND NECK: Unchanged. LUNGS: Remarkable for mild rhonchi. He is having the intermittent trouble clearing secretions HEART: Regular rhythm. ABDOMEN: Soft without guarding. DIAGNOSTIC STUDIES: Chest x-ray was showing pulmonary edema. Lasix doses were adjusted. He has been in negative fluid balance for the last 3 days Potassium was low this morning, replacement has been ordered. CBC stable with hemoglobin of 16.1, up from 13.7. IMPRESSION: 1. Encephalopathy With a subdural hematoma after a stroke. 2. Intermittent difficulties with secretions, He had unremarkable blood gases a couple of days ago. 3. Hypertension and atrial fibrillation with rapid ventricular response. P.r.n. labetalol has been restarted. Hopefully, this controls blood pressure and heart rate. He remains in the critical care unit. I also believe that his chance of surviving this long-term is small. I would think that he would have a very high 30-day mortality, given his encephalopathy and deconditioning combined with hemiplegia. He has a Dobbhoff tube in. Code status needs to be addressed. Job ID: [id number] MTDD
--- NOTE | 2019-05-16 19:18 | RAD ---
Radiograph abdomen one view: DATE: 05/16/2019 Time: 6:50 PM HISTORY: 83-year-old male status post Dobbhoff tube placement. COMPARISON: 05/15/2019 at 2:59 PM FINDINGS: Dobbhoff feeding tube distal tip is pointed superiorly, in the left upper quadrant of the abdomen. Po sitioning is different on the current study, which is rotated to the right compared to prior. There is probably no significant interval change. Severe lumbar spondylosis. Bilateral pedicle screws at up per lumbar spine. IMPRESSION: Dobbhoff feeding tube in proximal stomach.
[2019-05-16] MEDS: Haloperidol Lactate 5 MG/ML VIAL IM PRN (22:41)
[2019-05-17] MEDS: Metoprolol Tartrate 5 MG/5 ML VIAL IVP SCH ×2 (02:40→09:57)
[2019-05-17] MEDS: Amiodarone 450 MG, Admixture Fee 1 EACH in Dextrose 5% in Water 250 ML IVPB SCH (02:50)
[2019-05-17] MEDS: hydrALAZINE 20 MG/ML VIAL SLOW IVP PRN ×2 (06:19→22:43)
[2019-05-17] MEDS: HumaLOG 300 UNITS/3 ML VIAL SC PRN (06:20)
[2019-05-17] MEDS: Scopolamine 1.5 mg/72 hour Patch TD SCH (06:20)
--- NOTE | 2019-05-17 07:00 | PDOC.FM ---
- Subjective Subjective: NAEO. Agitated. A&O x1 so unable to elicit great history. - Objective Vital Signs & Weight: Vital Signs (12 hours) Temp Pulse Resp BP Pulse Ox 05/17/19 06:30 61 18 100 05/17/19 06:19 66 200/82 H 05/17/19 04:00 96.9 F L 05/16/19 22:23 66 200/82 H 05/16/19 20:00 97.6 F 96 Weight Admit Weight 87.09 kg Weight 91.1 kg Most Recent Monitor Data Heart Rate from ECG 58 NIBP 172/64 NIBP BP-Mean 100 Respiration from ECG 17 SpO2 100 I&O: 05/15/19 05/16/19 05/17/19 06:59 06:59 06:59 Intake Total 1143 1548 2137.3 Output Total 2655 3635 1125 Balance -1512 -5788 1012.3 Result Diagrams: 05/22/19 05:30 05/22/19 05:30 Phys Exam - Physical Examination HEENT: PERRLA, moist MMs Respiratory: no wheezing, clear to auscultation bilateral tachy, irregular Gastrointestinal: soft, non-tender Musculoskeletal: no edema a&o x1 Dx/Plan (1) CVA (cerebral vascular accident) Code(s): I63.9 - CEREBRAL INFARCTION, UNSPECIFIED Status: Deleted (2) Subdural hematoma, chronic Code(s): I62.03 - NONTRAUMATIC CHRONIC SUBDURAL HEMORRHAGE Status: Acute (3) Atrial fibrillation with RVR Code(s): I48.91 - UNSPECIFIED ATRIAL FIBRILLATION Status: Acute (4) Community acquired pneumonia Code(s): J18.9 - PNEUMONIA, UNSPECIFIED ORGANISM Status: Acute Qualifiers: Laterality: unspecified laterality Qualified Code(s): J18.9 - Pneumonia, unspecified organism (5) CAD (coronary artery disease) Code(s): I25.10 - ATHSCL HEART DISEASE OF [place] CORONARY ARTERY W/O ANG PCTRS Status: Chronic Qualifiers: Coronary Disease-Associated Artery/Lesion type: unspecified vessel or lesion type [place] vs. transplanted heart: [place] heart Associated angina: angina presence unspecified Qualified Code(s): I25.10 - Atherosclerotic heart disease of [place] coronary artery without angina pectoris (6) Altered mental status Code(s): R41.82 - ALTERED MENTAL STATUS, UNSPECIFIED Status: Acute Qualifiers: Altered mental status type: disorientation Qualified Code(s): R41.0 - Disorientation, unspecified (7) Depression Code(s): F32.9 - MAJOR DEPRESSIVE DISORDER, SINGLE EPISODE, UNSPECIFIED Status : Chronic (8) GERD (gastroesophageal reflux disease) Code(s): K21.9 - GASTRO-ESOPHAGEAL REFLUX DISEASE WITHOUT ESOPHAGITIS Status: Chronic - Plan Plan: 83yo M with h/o paroxysmal afib in 2013, CAD, HTN, and HLD here for acute encephalopathy, CHF exacerbation, acute CVA, chronic subdural hematoma, afib wtih RVR #Encephalopathy, likely delirium superimposed on dementia -ddx: ischemic stroke vs. delirium on dementia -patient improves with daughter in room, continue reorientation measures with geodon PRN for agitation, restraints in place. -Dobhoff feeds, full speech swallow when more awake/aware -current mental status likely new baseline. palliative care mtg today about prognosis. likely terminal make up operator placement needed. CM consulted #Afib with RVR - Afib but rate controlled on amio & dixogin. - Therapeutic lovenox (also for R MCA clot) - Likely from new onset systolic heart failure in setting of HFpEF - Cardiology on board, recs appreciated #HTN, uncontrolled - PO lopressor -labetalol & hydralazine PRN, need more aggressive control, will discuss with team #Sepsis 2/2 aspiration vs. community acquired pneumonia - CTA - Right pulm infiltrate: aspiration PNA vs. pneumonitis vs. CAP - Dr. Mya on board, recs appreciated - Oral augmentin, day #4 of abx, treat until completed 10-14 day course - Bcx NGTD @ 5 days, no fever however with leukocytosis could be 2/2 steroids #New onset systolic heart failure -TTE with EF 20-25% -had been diuresed with lasix, but held for now due to new STEPHANIA from overdiuresis -monitor fluid status, pending AM labs, may need more lasix #CVA with Left-sided Weakness - Code Green called @ 0600 on 05/12/19 - repeat CT head with chronic subdural hematoma, neurosurg/neurology consulted - CT angio: 4.6 mm focal clot in right MCA - On therapeutic lovenox -neurosurg- no surgical intervention at this time, CT head if acute change in mental status -PT/ST/OT on board #COPD exacerbation -[place] duonebs -steroids -ABG values WNL #PVD of LLE -on arterial imaging -no surgical intervention at this time, continue monitoring #Subdural hematoma, chronic -see plan above # H/o Alcohol Abuse - unsure history - clinically monitor, ASE protocol # Elevated D- Dimer, resolved - D-dimer 1.68 - CTA negative for PE #Indeterminate troponin - likely demand ischemia from afib with RVR. Has hx of CAD - Trops downtrendin.065 > 0.067 > 0.055 - EKG no acute T wave or ST changes - Continue clinically monitoring, reobtain EKG, new set of trops if experiencing new CP VTE:th lovenox Diet: dobhoff feeds Code: Full Lines: left wrist peripheral, right AC peripheral Dispo: Palliative care meeting today. Talk with CM about placement. Addendum - Attending - Attending Attestation Date/Time: 05/22/19 6935 I personally evaluated the patient and discussed the management with Dr. Johnson on 05/17/19. I agree with the History, Examination, Assessment and Plan documented above with any addition or exceptions noted below.
[2019-05-17 07:08] LABS: #Basophils 0.1 thou/uL (0.0-0.2); #Monocytes 1.6 thou/uL (0.11-0.59); #Neutrophils 13.2 thou/uL (1.40-6.50); %Basophils 0.3 % (0.0-1.0); %Eosinophils 0.2 % (0.0-10.0); %Lymphocytes 12.1 % (21.0-51.0); %Monocytes 9.3 % (0.0-10.0); %Neutrophils 78.1 % (42.0-75.0); Hemoglobin 16.1 g/dL (14.0-18.0); Mean Corpuscular HGB CONC 31.7 g/dL (32.0-36.0); Mean Corpuscular Hemoglobin 29.5 pg (27.0-31.0); Mean Corpuscular Volume 93.2 fL (78.0-98.0); Mean Platelet Volume 8.3 fL (7.4-10.4); Platelet Count 268 thou/uL (130-400); RBC Distribution Width 14.2 % (11.5-14.5); Red Blood Cell (RBC) Count 5.45 mill/uL (4.70-6.10); White Blood Cell (WBC) Count 16.8 thou/uL (4.8-10.8)
[2019-05-17 07:37] LABS: ALT (SGPT) 41 U/L (8-55); AST (SGOT) 31 U/L (5-34); Albumin 3.5 g/dL (3.4-4.8); Alkaline Phosphatase 98 U/L (40-150); Anion Gap 13 mmol/L (10-20); BUN (Urea Nitrogen) 35 mg/dL (8.4-25.7); Bilirubin, Total 0.6 mg/dL (0.2-1.2); Calc. Creatinine Clearance 83 mL/min (70-130); Calcium 9.2 mg/dL (7.8-10.44); Carbon Dioxide 30 mmol/L (23-31); Chloride 103 mmol/L (98-107); Estimated GFR-MDRD 83; Globulin 3.1 g/dL (2.4-3.5); Glucose 160 mg/dL (83-110); Potassium 3.7 mmol/L (3.5-5.1); Protein, Total 6.6 g/dL (5.8-8.1); Sodium 142 mmol/L (136-145)
[2019-05-17 08:32] LABS: INR-International Normal Ratio 1.1; Prothrombin Time 13.8 SEC (12.0-14.7)
--- NOTE | 2019-05-17 09:17 | PRG ---
DATE OF SERVICE: 05/17/2019 SUBJECTIVE: Taco Steiner, this morning, remains in the ICU. OBJECTIVE: VITAL SIGNS: Pulse 58, blood pressure 118/75, saturations are 98% on supplemental oxygen, respirations 13. HEENT: Clearly encephalopathic. CHEST: Decreased breath sounds. No wheezing. CARDIAC: Normal S1 and S2. No gallops. ABDOMEN: Distended, soft. No masses. LABORATORY DATA: Lytes are normal. White count 16,000. IMPRESSION: 1. Metabolic encephalopathy. 2. Cardiac arrhythmias. 3. Morbid obesity. 4. Small subdural. PLAN: Continue supportive care. He is on antibiotics, amiodarone, neb treatments. Minimize sedation, PT. Code status needs to be addressed with the family. Job ID: [id number]
[2019-05-17] MEDS ORDERED: Furosemide 40 MG TAB PO SCH (09:34)
[2019-05-17] MEDS: methylPREDNISolone Sod Succ 40 MG VIAL IVP SCH (09:55)
[2019-05-17] MEDS: Enoxaparin Sodium 100 MG/ML SYRINGE SC SCH ×2 (09:55→22:09)
[2019-05-17] MEDS: Potassium Chloride 20 MEQ TAB PO SCH ×2 (09:56→17:40)
[2019-05-17] MEDS: Famotidine/PF 20 mg/2ml Vial SLOW IVP SCH ×2 (09:56→22:07)
[2019-05-17] MEDS: Amoxicillin/Potassium Clav 875 MG TAB PER TUBE SCH ×2 (09:56→22:09)
[2019-05-17] MEDS: Aspirin 300 MG Suppository PR SCH (09:56)
[2019-05-17] MEDS: Digoxin 0.5 MG/2 ML AMP SLOW IVP SCH (09:58)
[2019-05-17] MEDS ORDERED: niCARdipine 25 MG in Sodium Chloride 0.9% 250 ML 240 ML IVPB SCH (17:45)
[2019-05-17] MEDS ORDERED: Ziprasidone 20 MG VIAL IM PRN (18:32)
[2019-05-17] MEDS: Lisinopril 5 MG TAB PO SCH (22:06)
[2019-05-18] MEDS: Labetalol HCl 100 MG/20 ML VIAL SLOW IVP PRN (04:12)
[2019-05-18 05:02] LABS: #Basophils 0.1 thou/uL (0.0-0.2); #Eosinphils 0.1 thou/uL (0.0-0.7); #Lymphocytes 2.3 thou/uL (1.20-3.40); #Monocytes 1.6 thou/uL (0.11-0.59); #Neutrophils 11.2 thou/uL (1.40-6.50); %Basophils 0.3 % (0.0-1.0); %Eosinophils 0.8 % (0.0-10.0); %Lymphocytes 15.3 % (21.0-51.0); %Monocytes 10.3 % (0.0-10.0); %Neutrophils 73.3 % (42.0-75.0); Mean Corpuscular HGB CONC 32.6 g/dL (32.0-36.0); Mean Corpuscular Hemoglobin 29.7 pg (27.0-31.0); Mean Platelet Volume 8.3 fL (7.4-10.4); Platelet Count 254 thou/uL (130-400); RBC Distribution Width 14.1 % (11.5-14.5); Red Blood Cell (RBC) Count 5.07 mill/uL (4.70-6.10); White Blood Cell (WBC) Count 15.3 thou/uL (4.8-10.8)
[2019-05-18 05:27] LABS: ALT (SGPT) 58 U/L (8-55); AST (SGOT) 48 U/L (5-34); Albumin 3.4 g/dL (3.4-4.8); Alkaline Phosphatase 87 U/L (40-150); Anion Gap 11 mmol/L (10-20); BUN (Urea Nitrogen) 32 mg/dL (8.4-25.7); Bilirubin, Total 0.8 mg/dL (0.2-1.2); Calc. Creatinine Clearance 94 mL/min (70-130); Calcium 8.9 mg/dL (7.8-10.44); Carbon Dioxide 27 mmol/L (23-31); Chloride 107 mmol/L (98-107); Estimated GFR-MDRD Greater than 90; Globulin 2.8 g/dL (2.4-3.5); Glucose 144 mg/dL (83-110); Potassium 3.9 mmol/L (3.5-5.1); Protein, Total 6.2 g/dL (5.8-8.1); Sodium 141 mmol/L (136-145)
[2019-05-18 05:38] LABS: INR-International Normal Ratio 1.1; PTT 33.6 SEC (22.9-36.1)
--- NOTE | 2019-05-18 06:26 | PDOC.FM ---
- Subjective Subjective: Taco Steiner is seen at bedside this morning. He went into A fib with RVR this morning. His rate is in the 100-120s. His BPs have remained stable. He has no complaints and nursing staff reports no events. He continues to be on the amio gtt. He denies any fever, chills, chest pain, dyspnea, n/v, abdominal pain. - Objective MAR Reviewed: Yes Vital Signs & Weight: Vital Signs (12 hours) Temp Pulse Resp BP BP Pulse Ox 05/18/19 04:12 121 H 205/87 H 05/18/19 03:30 97.8 F 71 19 205/87 H 95 05/18/19 00:00 97.8 F 66 18 194/86 H 95 05/17/19 22:43 66 194/84 H 05/17/19 22:06 66 195/93 H 05/17/19 20:00 97.9 F 70 18 195/93 H 94 L Weight Admit Weight 87.09 kg Weight 96.615 kg Most Recent Monitor Data Heart Rate from ECG 93 NIBP 168/73 NIBP BP-Mean 104 Respiration from ECG 25 SpO2 98 I&O: 05/16/19 05/17/19 05/18/19 06:59 06:59 06:59 Intake Total 1548 2137.3 1176 Output Total 3635 1125 1683 Balance -7 1012.3 -507 Result Diagrams: 05/18/19 04:48 05/18/19 04:48 Phys Exam - Physical Examination Constitutional: NAD HEENT: moist MMs, sclera anicteric Neck: supple, full ROM Respiratory: no wheezing, no rales, no rhonchi, clear to auscultation bilateral Cardiovascular: no significant murmur, no rub irregularly irregular rhythm, tachycardic Gastrointestinal: soft, non-tender, no distention, positive bowel sounds Musculoskeletal: no edema, pulses present Neurological: non-focal, normal sensation, moves all 4 limbs Psychiatric: normal affect, A&O x 3 Skin: no rash, cap refill <2 seconds Dx/Plan (1) Altered mental status Code(s): R41.82 - ALTERED MENTAL STATUS, UNSPECIFIED Status: Acute Qualifiers: Altered mental status type: disorientation Qualified Code(s): R41.0 - Disorientation, unspecified (2) Atrial fibrillation with RVR Code(s): I48.91 - UNSPECIFIED ATRIAL FIBRILLATION Status: Acute (3) Paroxysmal atrial fibrillation Code(s): I48.0 - PAROXYSMAL ATRIAL FIBRILLATION Status: Acute (4) Subdural hematoma, chronic Code(s): I62.03 - NONTRAUMATIC CHRONIC SUBDURAL HEMORRHAGE Status: Acute (5) CAD (coronary artery disease) Code(s): I25.10 - ATHSCL HEART DISEASE OF [place] CORONARY ARTERY W/O ANG PCTRS Status: Chronic Qualifiers: Coronary Disease-Associated Artery/Lesion type: unspecified vessel or lesion type [place] vs. transplanted heart: [place] heart Associated angina: angina presence unspecified Qualified Code(s): I25.10 - Atherosclerotic heart disease of [place] coronary artery without angina pectoris (6) Dyslipidemia Code(s): E78.5 - HYPERLIPIDEMIA, UNSPECIFIED Status: Chronic (7) Hypertension Code(s): I10 - ESSENTIAL (PRIMARY) HYPERTENSION Status: Chronic Qualifiers: Hypertension type: essential hypertension Qualified Code(s): I10 - Essential (primary) hypertension - Plan Plan: 83yo M with h/o paroxysmal afib in 2013, CAD, HTN, and HLD here for acute encephalopathy, CHF exacerbation, acute CVA, chronic subdural hematoma, afib wtih RVR #Encephalopathy, likely delirium superimposed on dementia - ddx: ischemic stroke vs. delirium on dementia - patient improves with daughter in room, continue reorientation measures with geodon PRN for agitation, restraints in place. - Dobhoff feeds, full speech swallow when more awake/aware - current mental status likely new baseline. palliative care consulted. - likely fpc placement needed. CM consulted #Afib with RVR - Afib but rate controlled on amio gtt, transitioning to PO amio, continue gtt in meantime, per cards - Therapeutic lovenox (also for R MCA clot) - Likely from new onset systolic heart failure in setting of HFpEF - Cardiology on board, recs appreciated #HTN, uncontrolled - PO lopressor - labetalol & hydralazine PRN - will advance regimen today due to uncontrolled BPs #Sepsis 2/2 aspiration vs. community acquired pneumonia - CTA - Right pulm infiltrate: aspiration PNA vs. pneumonitis vs. CAP - Dr. May on board, recs appreciated - Oral augmentin, day #5 of abx, treat until completed 10-14 day course - Bcx NGTD @ 5 days, no fever however with leukocytosis could be 2/2 steroids #New onset systolic heart failure - TTE with EF 20-25% - had been diuresed with lasix - monitor fluid status, may need more lasix #CVA with Left-sided Weakness - Code Richard called @ 0600 on 05/12/19 - repeat CT head with chronic subdural hematoma, neurosurg/neurology consulted - CT angio: 4.6 mm focal clot in right MCA - On therapeutic lovenox - neurosurg- no surgical intervention at this time, CT head if acute change in mental status - PT/ST/OT on board #COPD exacerbation - [place] duonebs - steroids - ABG values WNL #PVD of LLE - on arterial imaging - no surgical intervention at this time, continue monitoring #Subdural hematoma, chronic - see plan above # H/o Alcohol Abuse - unsure history - clinically monitor, ASE protocol # Elevated D- Dimer, resolved - D-dimer 1.68 - CTA negative for PE #Indeterminate troponin - likely demand ischemia from afib with RVR. Has hx of CAD - Trops downtrendin.065 > 0.067 > 0.055 - EKG no acute T wave or ST changes - Continue clinically monitoring, reobtain EKG, new set of trops if experiencing new CP VTE:th lovenox Diet: dobhoff feeds Code: DNAR, palliative met with family on 05/17 Lines: left wrist peripheral, right AC peripheral Dispo: CM, placement. Addendum - Attending - Attending Attestation Date/Time: 05/18/192012 I personally evaluated the patient and discussed the management with Dr. Salazar I agree with the History, Examination, Assessment and Plan documented above with any addition or exceptions noted below.
[2019-05-18] MEDS: Potassium Chloride 20 MEQ TAB PO SCH (08:29)
[2019-05-18] MEDS: Furosemide 40 MG TAB PO SCH (08:31)
[2019-05-18] MEDS: Lisinopril 5 MG TAB PO SCH ×2 (08:32→20:32)
[2019-05-18] MEDS: Amoxicillin/Potassium Clav 875 MG TAB PER TUBE SCH ×2 (08:32→20:32)
[2019-05-18] MEDS: Famotidine/PF 20 mg/2ml Vial SLOW IVP SCH (08:32)
[2019-05-18] MEDS: Enoxaparin Sodium 100 MG/ML SYRINGE SC SCH ×2 (08:32→22:20)
[2019-05-18] MEDS: Aspirin 81 mg Enteric Coated Tablet PO SCH (08:32)
[2019-05-18] MEDS: methylPREDNISolone Sod Succ 40 MG VIAL IVP SCH (08:33)
--- NOTE | 2019-05-18 10:33 | PDOC.CPN ---
- Subjective Date: 05/18/19 Time: 10:00 Interval history: Converted to AF again. Pulse 100-120bpm. On Amio and diltiazem gtt. Also with hematuria. - Review of Systems ROS unobtainable: due to mental status - Objective Allergies/Adverse Reactions: Allergies Allergy/AdvReac Type Severity Reaction Status Date / Time iodine Allergy Verified 05/16/14 11:05 Visit Medications: Current Medications Acetaminophen (Tylenol) 650 mg PO Q4H PRN PRN Reason: Headache/Fever/Mild Pain (1-3) Albuterol/Ipratropium (Duoneb) 3 ml NEB [id number] [facility] Last Admin: 05/18/19 10:25 Dose: 3 ml Amoxicillin/Clavulanate Potassium (Augmentin) 875 mg PER TUBE Q12HR [facility] Last Admin: 05/18/19 08:32 Dose: 875 mg Aspirin (Ecotrin) 81 mg PO DAILY [facility] Last Admin: 05/18/19 08:32 Dose: 81 mg Calcium Carbonate (Tums) 1,000 mg PO Q4H PRN PRN Reason: Heartburn or Indigestion Dextrose/Water (Dextrose 50%) 25 gm SLOW IVP PRN PRN PRN Reason: Hypoglycemia Enoxaparin Sodium (Lovenox) 90 mg SC 0900,2100 [facility] Last Admin: 05/18/19 08:32 Dose: 90 mg Famotidine (Pepcid) 20 mg SLOW IVP BID [facility] Last Admin: 05/18/19 08:32 Dose: 20 mg Furosemide (Lasix) 40 mg PO DAILY-AC [facility] Last Admin: 05/18/19 08:31 Dose: 40 mg Glucagon (Glucagon) 1 mg IM PRN PRN PRN Reason: Hypoglycemia Haloperidol Lactate (Haldol) 5 mg IM Q2H PRN PRN Reason: Agitation Last Admin: 05/16/19 22:41 Dose: 5 mg Hydralazine HCl (Apresoline) 5 mg SLOW IVP Q15MIN PRN PRN Reason: SBP Greater Than 180 Last Admin: 05/17/19 22:43 Dose: 5 mg Diltiazem HCl 125 mg/Miscellaneous Medication 1 each/ Sodium Chloride 125 mls @ 0 mls/hr IVPB INF [facility]; Protocol Last Admin: 05/13/19 13:47 Dose: 125 mls Thiamine HCl 100 mg/ Sodium (Chloride) 51 mls @ 100 mls/hr IVPB Q24HR [facility] Last Admin: 05/17/19 15:57 Dose: 51 mls Amiodarone HCl 450 mg/Miscellaneous Medication 1 each/ Dextrose/Water 259 mls @ 0 mls/hr IVPB INF [facility]; Protocol Last Admin: 05/17/19 02:50 Dose: 259 mls Dextrose/Water (D5w) 1,000 mls @ 0 mls/hr IV .Q0M PRN PRN Reason: Hypoglycemia Nicardipine HCl 25 mg/ Sodium (Chloride) 250 mls @ 0 mls/hr IVPB INF [facility]; Protocol Insulin Human Lispro (Humalog) 0 units SC .MILD SLIDING SCALE PRN PRN Reason: Mild Correctional Scale Last Admin: 05/17/19 06:20 Dose: 3 unit Labetalol HCl (Normodyne) 10 mg SLOW IVP Q4H PRN PRN Reason: SBP Greater Than 180 Last Admin: 05/18/19 04:12 Dose: 10 mg Lisinopril (Zestril) 5 mg PO BID [facility] Last Admin: 05/18/19 08:32 Dose: 5 mg Methylprednisolone Sodium Succinate (Solu-Medrol) 20 mg IVP DAILY [facility] Last Admin: 05/18/19 08:33 Dose: 20 mg Potassium Chloride (Klor-Con) 40 meq PER TUBE BID-[facility] Scopolamine (Transderm Scop) 1.5 mg TD Q3D [facility] Last Admin: 05/17/19 06:20 Dose: 1.5 mg Senna/Docusate Sodium (Senokot S) 2 tab PO BIDPRN PRN PRN Reason: Constipation Sodium Chloride (Flush - Normal Saline) 10 ml IVF PRN PRN PRN Reason: Saline Flush Ziprasidone (Geodon) 10 mg IM Q2H PRN PRN Reason: Agitation Vital Signs & Weight: Vital Signs Temp Pulse Resp BP BP Pulse Ox 05/18/19 10:25 93 15 95 05/18/19 07:10 97.4 F L 118 H 20 144/89 H 94 L 05/18/19 07:00 100 14 99 05/18/19 04:12 121 H 205/87 H 05/18/19 03:30 97.8 F 71 19 205/87 H 95 05/18/19 00:00 97.8 F 66 18 194/86 H 95 05/17/19 22:43 66 194/84 H Admit Weight 192 lb Weight 213 lb - Physical Exam General: no apparent distress, other (resting) HEENT: mucus membranes moist, normocephaly Neck: supple neck Cardiac: irregularly regular, tachycardia Lungs: no wheeze, rales, rhonchi Abdomen: unremarkable, soft, non-tender Skin: clear - Labs Result Diagrams: 05/18/19 04:48 05/18/19 04:48 Troponin/CKMB CK-MB (CK-2) 2.4 ng/mL (0-6.6) 05/11/19 15:27 Troponin I 0.055 ng/mL (< 0.028) H 05/11/19 21:31 - Telemetry Supraventricular conduction: atrial fibrillation - Assessment/Plan Assessment/Plan: 1. AF with RVR 2. s/p CVA 3. 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 HTN 6. PNA 7. Hematuria Add Amio PO/PT. May also need to add diliazem similar. Continue to monitor. RG Pt seen and examined Agree with the above
[2019-05-18] MEDS: Thiamine HCl 200 MG/2 ML VIAL IM SCH (15:03)
[2019-05-18] MEDS: hydrALAZINE 20 MG/ML VIAL SLOW IVP PRN (18:20)
[2019-05-18] MEDS: Amiodarone 200 MG TAB PER TUBE SCH (20:32)
--- NOTE | 2019-05-18 20:53 | PRG ---
DATE OF SERVICE: 05/18/2019 SERVICE: Pulmonary Medicine. INTERVAL HISTORY: The patient is doing really well from respiratory standpoint. He has been weaned down to room air. Denies any current chest discomfort, nausea, or vomiting. Otherwise, he has no specific complaints. PHYSICAL EXAMINATION: VITAL SIGNS: Afebrile, pulse 70, blood pressure 166/87, respirations 21, and saturation 94%, on room air. GENERAL: The patient is awake and alert, in no apparent distress. LUNGS: Decent air entry. There is no prolonged expiratory phase. No crackles are present. There is no wheezing. HEART: Tachycardic. Irregular. ABDOMEN: Soft, nontender, nondistended. Bowel sounds are positive. MUSCULOSKELETAL: No cyanosis or clubbing. There is trace pitting in the bilateral lower extremities. LABORATORY DATA: WBC 15.3, hemoglobin 15.0, platelets 254,000. INR 1.1. Basic metabolic profile is unremarkable. AST and ALT are marginally elevated. Otherwise, LFTs are unremarkable. Blood cultures x2, urine culture, influenza A and B are negative. ASSESSMENT: 1. Metabolic encephalopathy, resolving. 2. Atrial fibrillation with rapid ventricular response. 3. Subdural hematoma, small. 4. Morbid obesity. DISCUSSION AND PLAN: Supportive care will be continued including antibiotics, nebulized medications, and amiodarone. Pulmonary will continue to follow, intermittently while the patient remains in-house. Free water flushes will be continued at its current rate to maintain his sodium where it currently is. Please call if he develops any difficulties over the weekend. Job ID: [id number]
[2019-05-18] MEDS: Amiodarone 450 MG, Admixture Fee 1 EACH in Dextrose 5% in Water 250 ML IVPB SCH (22:12)
[2019-05-19] MEDS: Famotidine/PF 20 mg/2ml Vial SLOW IVP SCH ×3 (00:58→20:23)
[2019-05-19 05:26] LABS: PTT 29.6 SEC (22.9-36.1); Prothrombin Time 13.6 SEC (12.0-14.7)
[2019-05-19 05:41] LABS: #Basophils 0.1 thou/uL (0.0-0.2); #Eosinphils 0.2 thou/uL (0.0-0.7); #Lymphocytes 3.9 thou/uL (1.20-3.40); #Monocytes 1.9 thou/uL (0.11-0.59); #Neutrophils 11.5 thou/uL (1.40-6.50); %Basophils 0.4 % (0.0-1.0); %Eosinophils 0.9 % (0.0-10.0); %Lymphocytes 22.2 % (21.0-51.0); %Monocytes 10.7 % (0.0-10.0); %Neutrophils 65.7 % (42.0-75.0); Hemoglobin 14.1 g/dL (14.0-18.0); Mean Corpuscular HGB CONC 32.6 g/dL (32.0-36.0); Mean Platelet Volume 8.9 fL (7.4-10.4); Platelet Count 253 thou/uL (130-400); RBC Distribution Width 14.1 % (11.5-14.5); Red Blood Cell (RBC) Count 4.71 mill/uL (4.70-6.10); White Blood Cell (WBC) Count 17.4 thou/uL (4.8-10.8)
[2019-05-19 05:48] LABS: ALT (SGPT) 142 U/L (8-55); AST (SGOT) 92 U/L (5-34); Albumin 3.2 g/dL (3.4-4.8); Alkaline Phosphatase 106 U/L (40-150); Anion Gap 10 mmol/L (10-20); BUN (Urea Nitrogen) 28 mg/dL (8.4-25.7); Bilirubin, Total 0.7 mg/dL (0.2-1.2); Calc. Creatinine Clearance 93 mL/min (70-130); Carbon Dioxide 27 mmol/L (23-31); Chloride 106 mmol/L (98-107); Estimated GFR-MDRD Greater than 90; Globulin 2.6 g/dL (2.4-3.5); Glucose 144 mg/dL (83-110); Potassium 4.4 mmol/L (3.5-5.1); Protein, Total 5.8 g/dL (5.8-8.1); Sodium 139 mmol/L (136-145)
--- NOTE | 2019-05-19 07:35 | PDOC.FM ---
- Subjective Subjective: Taco Steiner seen at bedside this morning. Spoke with patient's son yesterday who feels like patient is starting to improve. There were no acute events overnight. Denies any fever, chills, chest pain, dyspnea, abdominal pain. - Objective MAR Reviewed: Yes Vital Signs & Weight: Vital Signs (12 hours) Temp Pulse Resp BP BP Pulse Ox 05/19/19 06:58 102 H 18 98 05/19/19 03:49 98.4 F 66 18 172/94 H 94 L 05/18/19 23:28 97.6 F 92 20 141/90 H 93 L 05/18/19 20:32 69 149/76 H 05/18/19 20:00 98.8 F 65 20 158/72 H 94 L Weight Admit Weight 87.09 kg Weight 93.213 kg Most Recent Monitor Data Heart Rate from ECG 93 NIBP 168/73 NIBP BP-Mean 104 Respiration from ECG 25 SpO2 98 I&O: 05/18/19 05/19/19 05/20/19 06:59 06:59 06:59 Intake Total 1176 3410 Output Total 1683 1980 Balance -507 1430 Result Diagrams: 05/19/19 04:12 05/19/19 04:12 Phys Exam - Physical Examination Constitutional: NAD HEENT: moist MMs, sclera anicteric Neck: supple, full ROM Respiratory: no wheezing, no rales, no rhonchi, clear to auscultation bilateral Cardiovascular: RRR, no significant murmur Gastrointestinal: soft, non-tender, no distention, positive bowel sounds Musculoskeletal: no edema, pulses present Psychiatric: normal affect, A&O x 3 Skin: no rash, cap refill <2 seconds Dx/Plan (1) Altered mental status Code(s): R41.82 - ALTERED MENTAL STATUS, UNSPECIFIED Status: Acute Qualifiers: Altered mental status type: disorientation Qualified Code(s): R41.0 - Disorientation, unspecified (2) Atrial fibrillation with RVR Code(s): I48.91 - UNSPECIFIED ATRIAL FIBRILLATION Status: Acute (3) Paroxysmal atrial fibrillation Code(s): I48.0 - PAROXYSMAL ATRIAL FIBRILLATION Status: Acute (4) Subdural hematoma, chronic Code(s): I62.03 - NONTRAUMATIC CHRONIC SUBDURAL HEMORRHAGE Status: Acute (5) CAD (coronary artery disease) Code(s): I25.10 - ATHSCL HEART DISEASE OF [place] CORONARY ARTERY W/O ANG PCTRS Status: Chronic Qualifiers: Coronary Disease-Associated Artery/Lesion type: unspecified vessel or lesion type [place] vs. transplanted heart: [place] heart Associated angina: angina presence unspecified Qualified Code(s): I25.10 - Atherosclerotic heart disease of [place] coronary artery without angina pectoris (6) Dyslipidemia Code(s): E78.5 - HYPERLIPIDEMIA, UNSPECIFIED Status: Chronic (7) Hypertension Code(s): I10 - ESSENTIAL (PRIMARY) HYPERTENSION Status: Chronic Qualifiers: Hypertension type: essential hypertension Qualified Code(s): I10 - Essential (primary) hypertension - Plan Plan: 83yo M with h/o paroxysmal afib in 2013, CAD, HTN, and HLD here for acute encephalopathy, CHF exacerbation, acute CVA, chronic subdural hematoma, afib wtih RVR #Encephalopathy, likely delirium superimposed on dementia - ddx: ischemic stroke vs. delirium on dementia - patient improves with daughter in room, continue reorientation measures with geodon PRN for agitation, restraints in place. - Dobhoff feeds, full speech swallow when more awake/aware - current mental status likely new baseline. palliative care consulted, plan to see him today, 05/19 - likely terminal worker placement needed. CM consulted #Afib with RVR - Afib but rate controlled on amio gtt, transitioning to PO amio, continue gtt in meantime, per cards - Therapeutic lovenox (also for R MCA clot) - Likely from new onset systolic heart failure in setting of HFpEF - Cardiology on board, recs appreciated #HTN, uncontrolled - PO lopressor - labetalol & hydralazine PRN - will advance regimen today due to uncontrolled BPs #Sepsis 2/2 aspiration vs. community acquired pneumonia - CTA - Right pulm infiltrate: aspiration PNA vs. pneumonitis vs. CAP - Dr. May on board, recs appreciated - Oral augmentin, day #5 of abx, treat until completed 10-14 day course - Bcx NGTD @ 5 days, no fever however with leukocytosis could be 2/2 steroids #New onset systolic heart failure - TTE with EF 20-25% - had been diuresed with lasix - monitor fluid status, may need more lasix #CVA with Left-sided Weakness - Code Richard called @ 0600 on 05/12/19 - repeat CT head with chronic subdural hematoma, neurosurg/neurology consulted - CT angio: 4.6 mm focal clot in right MCA - On therapeutic lovenox - neurosurg- no surgical intervention at this time, CT head if acute change in mental status - PT/ST/OT on board #COPD exacerbation - balbina duonebs - steroids - ABG values WNL #PVD of LLE - on arterial imaging - no surgical intervention at this time, continue monitoring #Subdural hematoma, chronic - see plan above # H/o Alcohol Abuse - unsure history - clinically monitor, ASE protocol # Elevated D- Dimer, resolved - D-dimer 1.68 - CTA negative for PE #Indeterminate troponin - likely demand ischemia from afib with RVR. Has hx of CAD - Trops downtrendin.065 > 0.067 > 0.055 - EKG no acute T wave or ST changes - Continue clinically monitoring, reobtain EKG, new set of trops if experiencing new CP VTE:th lovenox Diet: dobhoff feeds Code: DNAR Lines: left wrist peripheral, right AC peripheral Dispo: CM, placement. Addendum - Attending - Attending Attestation Date/Time: 05/19/19 1257 I personally evaluated the patient and discussed the management with Dr. Salazar I agree with the History, Examination, Assessment and Plan documented above with any addition or exceptions noted below. Working on transitioning to lower level of care with rehab.
[2019-05-19] MEDS: Furosemide 40 MG TAB PO SCH (09:26)
[2019-05-19] MEDS: Amoxicillin/Potassium Clav 875 MG TAB PER TUBE SCH ×2 (09:32→20:22)
[2019-05-19] MEDS: Aspirin 81 mg Enteric Coated Tablet PO SCH (09:32)
[2019-05-19] MEDS: Amiodarone 200 MG TAB PER TUBE SCH ×2 (09:32→20:22)
[2019-05-19] MEDS: Lisinopril 5 MG TAB PO SCH ×2 (09:32→20:22)
[2019-05-19] MEDS: Enoxaparin Sodium 100 MG/ML SYRINGE SC SCH ×2 (09:34→20:23)
[2019-05-19] MEDS: methylPREDNISolone Sod Succ 40 MG VIAL IVP SCH (09:36)
--- NOTE | 2019-05-19 10:18 | PDOC.CPN ---
- Subjective Date: 05/19/19 Time: 10:17 - Review of Systems ROS unobtainable: due to mental status General: reports: fever/chills, weight/appetite/sleep changes, night sweats, fatigue - Objective Allergies/Adverse Reactions: Allergies Allergy/AdvReac Type Severity Reaction Status Date / Time iodine Allergy Verified 05/16/14 11:05 Visit Medications: Current Medications Acetaminophen (Tylenol) 650 mg PO Q4H PRN PRN Reason: Headache/Fever/Mild Pain (1-3) Albuterol/Ipratropium (Duoneb) 3 ml NEB [id number] [facility] Last Admin: 05/19/19 06:58 Dose: 3 ml Amiodarone HCl (Cordarone) 400 mg PER TUBE BID [facility] [place] Last Admin: 05/19/19 09:32 Dose: 400 mg Amoxicillin/Clavulanate Potassium (Augmentin) 875 mg PER TUBE Q12HR [facility] [place] Last Admin: 05/19/19 09:32 Dose: 875 mg Aspirin (Ecotrin) 81 mg PO DAILY [facility] [place] Last Admin: 05/19/19 09:32 Dose: 81 mg Calcium Carbonate (Tums) 1,000 mg PO Q4H PRN PRN Reason: Heartburn or Indigestion Dextrose/Water (Dextrose 50%) 25 gm SLOW IVP PRN PRN PRN Reason: Hypoglycemia Diltiazem HCl (Cardizem) 30 mg PER TUBE QID [facility] [place] Enoxaparin Sodium (Lovenox) 90 mg SC 0900,2100 [facility] [place] Last Admin: 05/19/19 09:34 Dose: 90 mg Famotidine (Pepcid) 20 mg SLOW IVP BID [facility] [place] Last Admin: 05/19/19 09:33 Dose: 20 mg Furosemide (Lasix) 40 mg PO DAILY-AC [facility] [place] Last Admin: 05/19/19 09:26 Dose: 40 mg Glucagon (Glucagon) 1 mg IM PRN PRN PRN Reason: Hypoglycemia Haloperidol Lactate (Haldol) 5 mg IM Q2H PRN PRN Reason: Agitation Last Admin: 05/16/19 22:41 Dose: 5 mg Hydralazine HCl (Apresoline) 5 mg SLOW IVP Q15MIN PRN PRN Reason: SBP Greater Than 180 Last Admin: 05/18/19 18:20 Dose: 5 mg Amiodarone HCl 450 mg/Miscellaneous Medication 1 each/ Dextrose/Water 259 mls @ 0 mls/hr IVPB INF [facility] [place]; Protocol Stop: 05/19/19 12:00 Last Admin: 05/18/19 22:12 Dose: 259 mls Dextrose/Water (D5w) 1,000 mls @ 0 mls/hr IV .Q0M PRN PRN Reason: Hypoglycemia Insulin Human Lispro (Humalog) 0 units SC .MILD SLIDING SCALE PRN PRN Reason: Mild Correctional Scale Last Admin: 05/17/19 06:20 Dose: 3 unit Labetalol HCl (Normodyne) 10 mg SLOW IVP Q4H PRN PRN Reason: SBP Greater Than 180 Last Admin: 05/18/19 04:12 Dose: 10 mg Lisinopril (Zestril) 5 mg PO BID [facility] [place] Last Admin: 05/19/19 09:32 Dose: 5 mg Methylprednisolone Sodium Succinate (Solu-Medrol) 20 mg IVP DAILY [facility] [place] Last Admin: 05/19/19 09:36 Dose: 20 mg Potassium Chloride (Klor-Con) 40 meq PER TUBE BID-WM [facility] [place] Last Admin: 05/19/19 09:33 Dose: 40 meq Scopolamine (Transderm Scop) 1.5 mg TD Q3D [facility] [place] Last Admin: 05/17/19 06:20 Dose: 1.5 mg Senna/Docusate Sodium (Senokot S) 2 tab PO BIDPRN PRN PRN Reason: Constipation Sodium Chloride (Flush - Normal Saline) 10 ml IVF PRN PRN PRN Reason: Saline Flush Thiamine HCl (Thiamine Hcl) 100 mg IM Q24HR [facility] [place] Last Admin: 05/18/19 15:03 Dose: 100 mg Ziprasidone (Geodon) 10 mg IM Q2H PRN PRN Reason: Agitation Vital Signs & Weight: Vital Signs Temp Pulse Resp BP Pulse Ox 05/19/19 09:32 100 05/19/19 08:59 97.7 F 100 18 140/80 94 L 05/19/19 06:58 102 H 18 98 05/19/19 03:49 98.4 F 66 18 172/94 H 94 L 05/18/19 23:28 97.6 F 92 20 141/90 H 93 L Admit Weight 192 lb Weight 205 lb 8 oz - Physical Exam General: no apparent distress HEENT: mucus membranes moist Neck: supple neck Cardiac: tachycardia, other (IRR IRR) Lungs: normal breath sounds Neuro: other (not able to assess) Abdomen: unremarkable, soft Skin: clear - Labs Result Diagrams: 05/19/19 04:12 05/19/19 04:12 Troponin/CKMB CK-MB (CK-2) 2.4 ng/mL (0-6.6) 05/11/19 15:27 Troponin I 0.055 ng/mL (< 0.028) H 05/11/19 21:31 - Assessment/Plan Assessment/Plan: 1. AF with RVR 2. s/p CVA 3. 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 HTN 6. PNA 7. Hematuria Still AF with intermittent RVR. Continue Amio. Wean gtt. Add cardizem PT. On lovenox.
[2019-05-19] MEDS: Thiamine HCl 200 MG/2 ML VIAL IM SCH (14:43)
[2019-05-19] MEDS: HumaLOG 300 UNITS/3 ML VIAL SC PRN (19:05)
[2019-05-20 04:04] LABS: PTT 29.7 SEC (22.9-36.1); Prothrombin Time 13.3 SEC (12.0-14.7)
[2019-05-20 04:15] LABS: ALT (SGPT) 140 U/L (8-55); AST (SGOT) 57 U/L (5-34); Albumin 3.3 g/dL (3.4-4.8); Alkaline Phosphatase 95 U/L (40-150); Anion Gap 13 mmol/L (10-20); BUN (Urea Nitrogen) 32 mg/dL (8.4-25.7); Bilirubin, Total 0.7 mg/dL (0.2-1.2); Calc. Creatinine Clearance 96 mL/min (70-130); Calcium 8.9 mg/dL (7.8-10.44); Carbon Dioxide 22 mmol/L (23-31); Chloride 107 mmol/L (98-107); Estimated GFR-MDRD Greater than 90; Globulin 2.6 g/dL (2.4-3.5); Glucose 139 mg/dL (83-110); Potassium 5.1 mmol/L (3.5-5.1); Protein, Total 5.9 g/dL (5.8-8.1); Sodium 137 mmol/L (136-145)
[2019-05-20 05:27] LABS: Band 4 % (5-11); Eosinophils 1 % (0-10); Hemoglobin 13.7 g/dL (14.0-18.0); Lymphocytes 29 % (21-51); MDiff Complete? YES; Mean Corpuscular HGB CONC 32.1 g/dL (32.0-36.0); Mean Corpuscular Hemoglobin 29.4 pg (27.0-31.0); Mean Corpuscular Volume 91.7 fL (78.0-98.0); Mean Platelet Volume 8.8 fL (7.4-10.4); Monocytes 5 % (0-10); Neutrophil 61 % (42-75); Platelet Count 244 thou/uL (130-400); RBC Distribution Width 14.1 % (11.5-14.5); Red Blood Cell (RBC) Count 4.65 mill/uL (4.70-6.10); White Blood Cell (WBC) Count 20.7 thou/uL (4.8-10.8)
[2019-05-20] MEDS: Scopolamine 1.5 mg/72 hour Patch TD SCH (05:27)
[2019-05-20] MEDS: Furosemide 40 MG TAB PO SCH (06:37)
[2019-05-20] MEDS: Amiodarone 200 MG TAB PER TUBE SCH ×4 (09:07→21:34)
[2019-05-20] MEDS: Amoxicillin/Potassium Clav 875 MG TAB PER TUBE SCH ×2 (09:35→21:34)
[2019-05-20] MEDS: Aspirin 81 mg Enteric Coated Tablet PO SCH (09:35)
[2019-05-20] MEDS: Lisinopril 5 MG TAB PO SCH ×2 (09:37→21:35)
[2019-05-20] MEDS: Enoxaparin Sodium 100 MG/ML SYRINGE SC SCH ×2 (09:38→21:32)
[2019-05-20] MEDS: Famotidine/PF 20 mg/2ml Vial SLOW IVP SCH ×2 (09:38→21:36)
[2019-05-20] MEDS: methylPREDNISolone Sod Succ 40 MG VIAL IVP SCH (09:38)
--- NOTE | 2019-05-20 10:04 | RAD ---
FRONTAL VIEW ABDOMEN: INDICATIONS: Confirm NG tube placement. FINDINGS: There is a Dobhoff feeding tube with a metallic stylet overlying the medial aspect of the left upper quadrant. This likely resides within the junction of the gastric body and fundus. IMPRESSION: Tip of enteric catheter traverses to the medial left upper abdomen, as above. Recommend advancement for more optimal placement. POS: TPC
--- NOTE | 2019-05-20 11:33 | PDOC.EVN ---
Event Note - Event Note Event Note: Transition of Care Note from 05/11-05/17 Mr. Taco Steiner is an 83 yo M who presented for weakness. Was found to be in Afib wtih RVR and started on therapeutic lovenox and dilt & amio gtt and admitted to the hospital. On 05/12, hospital day 2, a gavin michel was called for acute onset of slurred speech, altered mentation and left sided weakness. CTA head and neck revealed right middle cerebral artery occlusion. CT brain non-con showed chronic subdural hematomas. Neurology, neurosurgery and cardiology were consulted in regards to how to proceed with anticoagulation; patient was not a candidate for tPA. Patient was admitted to the ICU and remained on therapeutic lovenox and both dilt and amio gtt due to difficult to rate control afib with RVR. Serial head CTs showed stable subdural hematomas. Unfortunately, his neurologic deficits and his mentation did not change. He remained A&O x1-2, suspected to be attributable to delirium on pre-existing dementia, likely worsened by the stroke. Patient had a dobhoff placed due to the stroke leaving him with the inability to swallow safely. Up until now, the patient has not improved clinically and it is likely he may not regain prior functionality. His prognosis is poor. He is not even able to participate with physical therapy. Conversation with the family has been had in regards to PEG tube placement and overall prognosis. He will be transferred to the floors to continue medical care.
--- NOTE | 2019-05-20 13:17 | PDOC.FM ---
- Subjective Subjective: Pt restrained with RUE. Apparently pt had been trying to pull out NG tube overnight. Otherwise family reports no acute events overnight. - Objective Vital Signs & Weight: Vital Signs (12 hours) Temp Pulse Resp BP BP Pulse Ox 05/20/19 12:00 98.7 F 87 20 95 05/20/19 11:49 151/66 H 05/20/19 11:11 106 H 20 95 05/20/19 09:37 66 155/66 H 05/20/19 08:00 97.7 F 66 17 151/66 H 95 05/20/19 06:58 59 L 16 94 L 05/20/19 04:18 104/77 05/20/19 04:00 97.8 F 59 L 18 104/77 95 Weight Admit Weight 87.09 kg Weight 94.393 kg Most Recent Monitor Data Heart Rate from ECG 93 NIBP 168/73 NIBP BP-Mean 104 Respiration from ECG 25 SpO2 98 I&O: 05/19/19 05/20/19 05/21/19 06:59 06:59 06:59 Intake Total 3410 1920 200 Output Total 1980 1095 Balance 1430 825 200 Result Diagrams: 05/20/19 03:47 05/20/19 03:47 Phys Exam - Physical Examination Constitutional: NAD HEENT: moist MMs, sclera anicteric Neck: no JVD, supple Respiratory: no wheezing, clear to auscultation bilateral Cardiovascular: RRR, no rub Gastrointestinal: soft, no distention Musculoskeletal: pulses present does not move L limbs, responds somewhat to yes and no questions Skin: no rash, normal turgor Dx/Plan (1) Atrial fibrillation with RVR Code(s): I48.91 - UNSPECIFIED ATRIAL FIBRILLATION Status: Acute (2) Lactic acid acidosis Code(s): E87.2 - ACIDOSIS Status: Acute (3) Paroxysmal atrial fibrillation Code(s): I48.0 - PAROXYSMAL ATRIAL FIBRILLATION Status: Acute (4) Subdural hematoma, chronic Code(s): I62.03 - NONTRAUMATIC CHRONIC SUBDURAL HEMORRHAGE Status: Acute (5) CAD (coronary artery disease) Code(s): I25.10 - ATHSCL HEART DISEASE OF [place] CORONARY ARTERY W/O ANG PCTRS Status: Chronic Qualifiers: Coronary Disease-Associated Artery/Lesion type: unspecified vessel or lesion type [place] vs. transplanted heart: [place] heart Associated angina: angina presence unspecified Qualified Code(s): I25.10 - Atherosclerotic heart disease of [place] coronary artery without angina pectoris (6) Dyslipidemia Code(s): E78.5 - HYPERLIPIDEMIA, UNSPECIFIED Status: Chronic (7) Hypertension Code(s): I10 - ESSENTIAL (PRIMARY) HYPERTENSION Status: Chronic Qualifiers: Hypertension type: essential hypertension Qualified Code(s): I10 - Essential (primary) hypertension (8) Abnormal cardiac enzyme level Code(s): R74.8 - ABNORMAL LEVELS OF OTHER [place] Status: Acute (9) Altered mental status Code(s): R41.82 - ALTERED MENTAL STATUS, UNSPECIFIED Status: Acute Qualifiers: Altered mental status type: disorientation Qualified Code(s): R41.0 - Disorientation, unspecified (10) Left lower lobe pneumonia Code(s): J18.9 - PNEUMONIA, UNSPECIFIED ORGANISM Status: Acute - Plan Plan: 83yo M with h/o paroxysmal afib in 2013, CAD, HTN, and HLD here for acute encephalopathy, CHF exacerbation, acute CVA, chronic subdural hematoma, afib wtih RVR Encephalopathy, likely delirium superimposed on dementia A- ddx: ischemic stroke vs. delirium on dementia. patient improves with daughter in room, continue reorientation measures with geodon PRN for agitation , restraints in place. likely superintendent container terminal placement needed. CM consulted. current mental status likely new baseline. palliative care consulted P- NG tube feeds, full speech swallow when more awake/aware Afib with RVR A- Likely from new onset systolic heart failure in setting of HFpEF. Afib but rate controlled on PO amio, mgmt per cards P- continue amiodarone PO - Therapeutic lovenox (also for R MCA clot) - Cardiology on board, recs appreciated HTN A- pt had been on lopressor per cards but was DCd. Lisinopril started 05/17 P- labetalol & hydralazine PRN - continue lisinopril, may need to titrate up Sepsis 2/2 aspiration vs. community acquired pneumonia A- CTA - Right pulm infiltrate: aspiration PNA vs. pneumonitis vs. CAP. Pulm on board, recs appreciated. Bcx NGTD @ 5 days, no fever however with leukocytosis could be 2/2 steroids P- Oral augmentin, day #6 of abx, treat until completed 10-14 day course New onset systolic heart failure A- TTE with EF 20-25% . had been diuresed with lasix. Pt on lisinopril but not BB. HR has been borline low P- monitor fluid status, may need more lasix -will consider starting BB when HR can tolerate -f/u cards recs CVA with Left-sided Weakness A- Code Green called @ 0600 on 05/12/19. repeat CT head with chronic subdural hematoma, neurosurg/neurology consulted. CT angio: 4.6 mm focal clot in right MCA. On therapeutic lovenox. neurosurg- no surgical intervention at this time, CT head if acute change in mental status P- continue therapeutic lovenox - PT/ST/OT on board COPD exacerbation A- stable P- balbina duonebs - steroids for one more day PVD of LLE - on arterial imaging - no surgical intervention at this time, continue monitoring Subdural hematoma, chronic - see plan above, will consider repeat head CT H/o Alcohol Abuse - unsure history - clinically monitor, ASE protocol Elevated D- Dimer, resolved - D-dimer 1.68 - CTA negative for PE Type 2 MS A- demand ischemia likely has affected overal health of pt considering afib and decreased cardiac output. Has hx of CAD - Trops downtrendin.065 > 0.067 > 0.055 - EKG no acute T wave or ST changes - Continue clinically monitoring, reobtain EKG, new set of trops if experiencing new CP VTE:th lovenox Diet: NG tube feeds Code: DNAR Lines: left wrist peripheral, right AC peripheral Dispo: CM, placement. Will have family meeting tomorrow with palliative to determine if pt will get PEG tube vs. possible plan for hospice Addendum - Attending - Attending Attestation Date/Time: 05/20/19 081 I personally evaluated the patient and discussed the management with Dr. Love at 1020 am. I agree with the History, Examination, Assessment and Plan documented above with any addition or exceptions noted below. Ischemic CVA- aspirin, statin therapy Failed speech eval for several days- 40 minute conversation today about prognosis and treatment options ranging from hospice care to PEG tube placement. Family meeting tomorrow morning for decision. afib with rvr- on po amiodarone now. Guarded to poor prognosis
[2019-05-20] MEDS ORDERED: Prevnar 13-Val Conj/PF 0.5 ML SYRINGE IM ONE (14:00)
[2019-05-20] MEDS: Thiamine HCl 200 MG/2 ML VIAL IM SCH (14:16)
[2019-05-20] MEDS: Carvedilol 6.25 MG TAB PO SCH (15:56)
[2019-05-20] MEDS: HumaLOG 300 UNITS/3 ML VIAL SC PRN (18:05)
[2019-05-21 05:02] LABS: Band 2 % (5-11); Eosinophils 2 % (0-10); Hemoglobin 13.3 g/dL (14.0-18.0); Lymphocytes 24 % (21-51); MDiff Complete? YES; Mean Corpuscular Hemoglobin 29.7 pg (27.0-31.0); Mean Corpuscular Volume 92.7 fL (78.0-98.0); Mean Platelet Volume 8.9 fL (7.4-10.4); Monocytes 6 % (0-10); Neutrophil 66 % (42-75); Platelet Count 271 thou/uL (130-400); RBC Distribution Width 14.1 % (11.5-14.5); White Blood Cell (WBC) Count 25.6 thou/uL (4.8-10.8)
[2019-05-21 05:42] LABS: ALT (SGPT) 131 U/L (8-55); AST (SGOT) 49 U/L (5-34); Albumin 3.4 g/dL (3.4-4.8); Alkaline Phosphatase 105 U/L (40-150); Anion Gap 13 mmol/L (10-20); BUN (Urea Nitrogen) 32 mg/dL (8.4-25.7); Bilirubin, Total 0.8 mg/dL (0.2-1.2); Calc. Creatinine Clearance 97 mL/min (70-130); Calcium 8.9 mg/dL (7.8-10.44); Carbon Dioxide 22 mmol/L (23-31); Chloride 103 mmol/L (98-107); Estimated GFR-MDRD Greater than 90; Globulin 2.8 g/dL (2.4-3.5); Glucose 141 mg/dL (83-110); Potassium 4.7 mmol/L (3.5-5.1); Protein, Total 6.2 g/dL (5.8-8.1); Sodium 133 mmol/L (136-145)
[2019-05-21] MEDS: Famotidine/PF 20 mg/2ml Vial SLOW IVP SCH ×2 (08:54→22:10)
[2019-05-21] MEDS: Aspirin 81 mg Enteric Coated Tablet PO SCH (08:55)
[2019-05-21] MEDS: Amoxicillin/Potassium Clav 875 MG TAB PER TUBE SCH ×2 (08:55→22:09)
[2019-05-21] MEDS: Lisinopril 5 MG TAB PO SCH ×2 (08:56→22:09)
[2019-05-21] MEDS: Carvedilol 6.25 MG TAB PO SCH ×4 (08:57→16:15)
[2019-05-21] MEDS: Amiodarone 200 MG TAB PER TUBE SCH ×4 (08:57→22:10)
[2019-05-21] MEDS: Furosemide 40 MG TAB PO SCH (08:57)
[2019-05-21] MEDS: Enoxaparin Sodium 100 MG/ML SYRINGE SC SCH ×2 (09:00→22:16)
[2019-05-21] MEDS: methylPREDNISolone Sod Succ 40 MG VIAL IVP SCH (09:02)
--- NOTE | 2019-05-21 09:03 | PDOC.FM ---
- Subjective Subjective: Pt resting in bed, overall seems more alert than previous days. Family meeting was held at 10am and family has decided to pursue more agressive mgmt of pt and desires PEG tube for his nutrition. Per nursing pt had residuals of 350ml around 0800, was made npo at 10am. - Objective Vital Signs & Weight: Vital Signs (12 hours) Temp Pulse Resp BP BP Pulse Ox 05/21/19 07:46 98.3 F 82 20 147/100 H 94 L 05/21/19 06:54 55 L 16 95 05/21/19 04:46 149/86 H 05/21/19 04:00 97.6 F 59 L 18 142/86 H 93 L 05/21/19 00:37 97.4 F L 88 18 103/78 96 05/21/19 00:00 103/78 05/20/19 21:35 84 Weight Admit Weight 87.09 kg Weight 95.753 kg Most Recent Monitor Data Heart Rate from ECG 93 NIBP 168/73 NIBP BP-Mean 104 Respiration from ECG 25 SpO2 98 I&O: 05/20/19 05/21/19 05/22/19 06:59 06:59 06:59 Intake Total 1920 1160 Output Total 1095 Balance 825 1160 Result Diagrams: 05/21/19 04:06 05/21/19 04:06 Phys Exam - Physical Examination Constitutional: NAD HEENT: moist MMs, sclera anicteric Neck: no JVD, supple Respiratory: no wheezing, clear to auscultation bilateral Cardiovascular: no significant murmur, no rub Gastrointestinal: soft, non-tender Musculoskeletal: pulses present unchanged from previous exams Psychiatric: normal affect Skin: no rash, normal turgor Dx/Plan (1) Atrial fibrillation with RVR Code(s): I48.91 - UNSPECIFIED ATRIAL FIBRILLATION Status: Acute (2) Lactic acid acidosis Code(s): E87.2 - ACIDOSIS Status: Acute (3) Paroxysmal atrial fibrillation Code(s): I48.0 - PAROXYSMAL ATRIAL FIBRILLATION Status: Acute (4) Subdural hematoma, chronic Code(s): I62.03 - NONTRAUMATIC CHRONIC SUBDURAL HEMORRHAGE Status: Acute (5) CAD (coronary artery disease) Code(s): I25.10 - ATHSCL HEART DISEASE OF [place] CORONARY ARTERY W/O ANG PCTRS Status: Chronic Qualifiers: Coronary Disease-Associated Artery/Lesion type: unspecified vessel or lesion type [place] vs. transplanted heart: [place] heart Associated angina: angina presence unspecified Qualified Code(s): I25.10 - Atherosclerotic heart disease of [place] coronary artery without angina pectoris (6) Dyslipidemia Code(s): E78.5 - HYPERLIPIDEMIA, UNSPECIFIED Status: Chronic (7) Hypertension Code(s): I10 - ESSENTIAL (PRIMARY) HYPERTENSION Status: Chronic Qualifiers: Hypertension type: essential hypertension Qualified Code(s): I10 - Essential (primary) hypertension (8) Abnormal cardiac enzyme level Code(s): R74.8 - ABNORMAL LEVELS OF OTHER SERUM ENZYMES Status: Acute (9) Altered mental status Code(s): R41.82 - ALTERED MENTAL STATUS, UNSPECIFIED Status: Acute Qualifiers: Altered mental status type: disorientation Qualified Code(s): R41.0 - Disorientation, unspecified (10) Left lower lobe pneumonia Code(s): J18.9 - PNEUMONIA, UNSPECIFIED ORGANISM Status: Acute - Plan Plan: 83yo M with h/o paroxysmal afib in 2013, CAD, HTN, and HLD here for acute encephalopathy, CHF exacerbation, acute CVA, chronic subdural hematoma, afib with RVR Encephalopathy, likely delirium superimposed on dementia A- ddx: ischemic stroke vs. delirium on dementia. patient improves with daughter in room, continue reorientation measures with geodon PRN for agitation , restraints in place. likely extermination inspector placement needed. CM consulted. P- NG tube feeds held for now. GI consulted for PEG tube. perhaps removing NG tube will help Afib with RVR A- Likely from new onset systolic heart failure in setting of HFpEF. Afib but rate controlled on PO amio, mgmt per cards P- continue amiodarone PO - cards added coreg - Therapeutic lovenox (also for R MCA clot) - Cardiology on board, recs appreciated HTN A- pt had been on lopressor per cards but was DCd. Lisinopril started 05/17 P- labetalol & hydralazine PRN - continue lisinopril, may need to titrate up Sepsis 2/2 aspiration vs. community acquired pneumonia A- CTA - Right pulm infiltrate: aspiration PNA vs. pneumonitis vs. CAP. Pulm on board, recs appreciated. Bcx NGTD @ 5 days, no fever however with leukocytosis could be 2/2 steroids P- Oral augmentin, day #7 of abx, treat until completed 10-14 day course New onset systolic heart failure A- TTE with EF 20-25% . had been diuresed with lasix. Pt on lisinopril but not BB. HR has been borline low P- monitor fluid status, may need more lasix -continue coreg and lisinopril -f/u cards recs CVA with Left-sided Weakness A- Code Green called @ 0600 on 05/12/19. repeat CT head with chronic subdural hematoma, neurosurg/neurology consulted. CT angio: 4.6 mm focal clot in right MCA. On therapeutic lovenox. neurosurg- no surgical intervention at this time, CT head if acute change in mental status P- continue therapeutic lovenox - PT/ST/OT on board COPD exacerbation A- stable P- balbina duonebs - steroids completed today PVD of LLE - on arterial imaging - no surgical intervention at this time, continue monitoring Subdural hematoma, chronic - see plan above, will consider repeat head CT H/o Alcohol Abuse - unsure history - clinically monitor, ASE protocol Elevated D- Dimer, resolved - D-dimer 1.68 - CTA negative for PE Type 2 PR A- demand ischemia likely has affected overal health of pt considering afib and decreased cardiac output. Has hx of CAD - Trops downtrendin.065 > 0.067 > 0.055 - EKG no acute T wave or ST changes - Continue clinically monitoring, reobtain EKG, new set of trops if experiencing new CP VTE:th lovenox Diet: GI consulted for PEG tube Code: DNAR Lines: left wrist peripheral, right AC peripheral Dispo: CM consulted for placement, pt needs PEG tube first and to be unrestrained. Addendum - Attending - Attending Attestation Date/Time: 05/21/19 3206 I personally evaluated the patient and discussed the management with Dr. Love I agree with the History, Examination, Assessment and Plan documented above with any addition or exceptions noted below. Nearing readiness for d/c to rehab vs SNF and family has decided to proceed with PEG tube placement- GI consulted for placement Afib- rate controlled now- appreciate cards recs with assisted meds and anticoag ischemic CVA- on ASA and statin.
[2019-05-21] MEDS: Thiamine HCl 200 MG/2 ML VIAL IM SCH (15:48)
--- NOTE | 2019-05-21 17:49 | CON ---
DATE OF CONSULTATION: 05/21/2019 REASON FOR CONSULTATION: Consider PEG tube placement. HISTORY OF PRESENT ILLNESS: Mr. Taco Steiner is an 83-year-old man, who presented to the hospital about 10 days ago with weakness and was found to be in atrial fibrillation with RVR. Unfortunately, he had an acute CVA on 05/12/2019. He was not a candidate for tPA. Cranial imaging showed right middle cerebral arterial occlusion as well as chronic subdural hematomas. He has been treated with therapeutic Lovenox. He has had persistent neurologic deficits since that time, as well as oropharyngeal dysphagia and delirium. He has been getting Dobbhoff tube feeds for the past several days, tolerating this well. His family has opted to continue to be aggressive with management and the goal is to have him at a rehab facility. They are requesting PEG tube placement. REVIEW OF SYSTEMS: Unable to obtain from the patient due to his altered mental status. PAST MEDICAL HISTORY: Hypertension, hyperlipidemia, BPH, chronic back pain, coronary artery disease, CHF (new onset this admission with EF 20% to 25%), atrial fibrillation new onset, CVA, left hip surgery, appendectomy, and back surgery x6. FAMILY HISTORY: Mother had myocardial infarction. Son had diabetes. SOCIAL HISTORY: He is a former smoker. Evidently prior to admission, he would have up to 12 pack of beer per day. No illicit drug use. ALLERGIES: IODINE. MEDICATIONS: 1. DuoNebs. 2. Amiodarone. 3. Augmentin 875 mg q.12 hours. 4. Aspirin 81 mg daily. 5. Coreg. 6. Lovenox 90 mg subcutaneous twice daily. 7. Pepcid 20 mg IV twice daily. 8. Lasix 40 mg daily. 9. Insulin sliding scale. 10. Lisinopril. 11. Potassium chloride. 12. Scopolamine patch. 13. Thiamine 100 mg IM q.24 hours. PHYSICAL EXAMINATION: VITAL SIGNS: Temperature 97.4, pulse 70, blood pressure 135/75, and 94% oxygen saturation on room air. GENERAL: An 83-year-old man lying in bed comfortably, in no distress. MENTAL: He is disoriented. He attempts to converse, but his speech is slurred and does not answer questions appropriately. SKIN: No jaundice. No rashes were palpable. He has some bruising to the anterior lower abdomen from Lovenox injections. HEENT: Eyes, no scleral icterus. ENT, he has a nasogastric tube in place. LYMPH: No submandibular or supraclavicular lymphadenopathy. HEART: Regular rate and rhythm. LUNGS: Bibasilar crackles. No respiratory distress. No wheezing. ABDOMEN: Obese. Bowel sounds are present. Soft and nontender to palpation throughout. Some bruising to the left lower quadrant from Lovenox injections. No surgical scars to the left upper quadrant. EXTREMITIES: No peripheral edema. VESSELS: Radial pulses 2+ bilaterally. NEURO: The patient does not follow commands. LABORATORY STUDIES: WBC 25.6, hemoglobin 13.3, and platelets 271. INR 1.0. Sodium 133, potassium 4.7, BUN 32, creatinine 0.78, total bilirubin 0.8, alkaline phosphatase 105, AST 49, ALT 131, and albumin 3.4. ASSESSMENT AND PLAN: Oropharyngeal dysphagia following stroke. The patient has not had significant improvement in his oropharyngeal dysphagia over the course of the hospitalization. The family has opted for percutaneous endoscopic gastrostomy tube placement for enteral feeding going forward, and I think this is certainly reasonable. I had a long discussion with the patient's daughter, Taina over the phone. We discussed the risks and benefits of percutaneous endoscopic gastrostomy tube placement and she desires for us to proceed. We will schedule this for tomorrow. Hold Lovenox tomorrow morning. The patient is already n.p.o. and tube feeds have been held. Thank you for the consultation. Please call anytime with questions or concerns. Job ID: [id number]
[2019-05-21] MEDS: HumaLOG 300 UNITS/3 ML VIAL SC PRN (18:49)
[2019-05-22 06:07] LABS: ALT (SGPT) 112 U/L (8-55); AST (SGOT) 41 U/L (5-34); Albumin 3.4 g/dL (3.4-4.8); Alkaline Phosphatase 99 U/L (40-150); Anion Gap 10 mmol/L (10-20); BUN (Urea Nitrogen) 44 mg/dL (8.4-25.7); Bilirubin, Total 0.8 mg/dL (0.2-1.2); Calc. Creatinine Clearance 88 mL/min (70-130); Calcium 8.9 mg/dL (7.8-10.44); Carbon Dioxide 25 mmol/L (23-31); Chloride 103 mmol/L (98-107); Estimated GFR-MDRD 83; Globulin 2.7 g/dL (2.4-3.5); Glucose 138 mg/dL (83-110); Potassium 4.7 mmol/L (3.5-5.1); Protein, Total 6.1 g/dL (5.8-8.1); Sodium 133 mmol/L (136-145)
[2019-05-22 06:11] LABS: Band 2 % (5-11); Eosinophils 1 % (0-10); Hemoglobin 12.4 g/dL (14.0-18.0); Lymphocytes 24 % (21-51); MDiff Complete? YES; Mean Corpuscular Hemoglobin 29.4 pg (27.0-31.0); Mean Corpuscular Volume 91.9 fL (78.0-98.0); Monocytes 7 % (0-10); Neutrophil 66 % (42-75); Platelet Count 282 thou/uL (130-400); RBC Distribution Width 14.3 % (11.5-14.5); Red Blood Cell (RBC) Count 4.21 mill/uL (4.70-6.10); White Blood Cell (WBC) Count 24.1 thou/uL (4.8-10.8)
--- NOTE | 2019-05-22 06:30 | PDOC.FM ---
- Subjective Subjective: Pt resting comfortably. Family not in room. pt in no apparent distress. no acute events overnight. Pt is npo with lovenox held. PLans for PEG tube today - Objective Vital Signs & Weight: Vital Signs (12 hours) Temp Pulse Resp BP Pulse Ox 05/22/19 03:10 98.1 F 73 18 126/90 96 05/21/19 23:59 98 F 65 20 138/78 95 05/21/19 20:00 98.1 F 62 20 124/76 95 05/21/19 18:45 60 18 Weight Admit Weight 87.09 kg Weight 95.753 kg Most Recent Monitor Data Heart Rate from ECG 93 NIBP 168/73 NIBP BP-Mean 104 Respiration from ECG 25 SpO2 98 I&O: 05/20/19 05/21/19 05/22/19 06:59 06:59 06:59 Intake Total 1920 1160 200 Output Total 1095 1 Balance 825 1160 199 Result Diagrams: 05/23/19 05:59 05/23/19 05:59 Phys Exam - Physical Examination Constitutional: NAD HEENT: moist MMs, sclera anicteric Neck: supple Respiratory: no wheezing, clear to auscultation bilateral Cardiovascular: no significant murmur, irregular Gastrointestinal: soft, non-tender Musculoskeletal: no edema sleeping Psychiatric: normal affect Skin: no rash, normal turgor Dx/Plan (1) Atrial fibrillation with RVR Code(s): I48.91 - UNSPECIFIED ATRIAL FIBRILLATION Status: Acute (2) Lactic acid acidosis Code(s): E87.2 - ACIDOSIS Status: Acute (3) Paroxysmal atrial fibrillation Code(s): I48.0 - PAROXYSMAL ATRIAL FIBRILLATION Status: Acute (4) Subdural hematoma, chronic Code(s): I62.03 - NONTRAUMATIC CHRONIC SUBDURAL HEMORRHAGE Status: Acute (5) CAD (coronary artery disease) Code(s): I25.10 - ATHSCL HEART DISEASE OF [place] CORONARY ARTERY W/O ANG PCTRS Status: Chronic Qualifiers: Coronary Disease-Associated Artery/Lesion type: unspecified vessel or lesion type [place] vs. transplanted heart: [place] heart Associated angina: angina presence unspecified Qualified Code(s): I25.10 - Atherosclerotic heart disease of [place] coronary artery without angina pectoris (6) Dyslipidemia Code(s): E78.5 - HYPERLIPIDEMIA, UNSPECIFIED Status: Chronic (7) Hypertension Code(s): I10 - ESSENTIAL (PRIMARY) HYPERTENSION Status: Chronic Qualifiers: Hypertension type: essential hypertension Qualified Code(s): I10 - Essential (primary) hypertension (8) Abnormal cardiac enzyme level Code(s): R74.8 - ABNORMAL LEVELS OF OTHER SERUM ENZYMES Status: Acute (9) Altered mental status Code(s): R41.82 - ALTERED MENTAL STATUS, UNSPECIFIED Status: Acute Qualifiers: Altered mental status type: disorientation Qualified Code(s): R41.0 - Disorientation, unspecified (10) Left lower lobe pneumonia Code(s): J18.9 - PNEUMONIA, UNSPECIFIED ORGANISM Status: Acute - Plan Plan: 83yo M with h/o paroxysmal afib in 2013, CAD, HTN, and HLD here for acute encephalopathy, CHF exacerbation, acute CVA, chronic subdural hematoma, afib with RVR Dysphagia A- pt failed multiple swallow studies. GI consulted yesterday for PEG tube, lovenox held this AM, NPO P- PEG tube placement today Delirium A- likely worsened by NG tube P- PEG tube placement, encourage family for frequent re-orientation Afib with RVR A- Likely from new onset systolic heart failure in setting of HFpEF. Afib but rate controlled on PO amio, mgmt per cards P- continue amiodarone PO - cards added coreg - Therapeutic lovenox (also for R MCA clot), held this AM for PEG - Cardiology on board, recs appreciated HTN A- pt had been on lopressor per cards but was DCd. Lisinopril started 05/17 P- labetalol & hydralazine PRN - continue lisinopril Sepsis 2/2 aspiration vs. community acquired pneumonia A- CTA - Right pulm infiltrate: aspiration PNA vs. pneumonitis vs. CAP. Pulm on board, recs appreciated. Bcx NGTD @ 5 days, no fever however with leukocytosis could be 2/2 steroids P- Oral augmentin, day #8 of abx, treat until completed 10-14 day course New onset systolic heart failure A- TTE with EF 20-25% . had been diuresed with lasix. Pt on lisinopril but not BB. HR has been borline low P- monitor fluid status, may need more lasix -continue coreg and lisinopril -f/u cards recs CVA with Left-sided Weakness A- Code Richard called @ 0600 on 05/12/19. repeat CT head with chronic subdural hematoma, neurosurg/neurology consulted. CT angio: 4.6 mm focal clot in right MCA. On therapeutic lovenox. neurosurg- no surgical intervention at this time, CT head if acute change in mental status P- continue therapeutic lovenox after PEG - PT/ST/OT on board COPD exacerbation A- stable P- balbina duonebs - steroids completed PVD of LLE - on arterial imaging - no surgical intervention at this time, continue monitoring Subdural hematoma, chronic - see plan above, will consider repeat head CT H/o Alcohol Abuse - unsure history - clinically monitor, ASE protocol Elevated D- Dimer, resolved - D-dimer 1.68 - CTA negative for PE Type 2 [place] A- demand ischemia likely has affected overal health of pt considering afib and decreased cardiac output. Has hx of CAD - Trops downtrendin.065 > 0.067 > 0.055 - EKG no acute T wave or ST changes - Continue clinically monitoring, reobtain EKG, new set of trops if experiencing new CP VTE:th lovenox Diet: GI consulted for PEG tube Code: DNAR Lines: left wrist peripheral, right AC peripheral Dispo: CM consulted for placement, pt needs PEG tube first and to be unrestrained. Addendum - Attending - Attending Attestation Date/Time: 05/24/19 0809 I personally evaluated the patient and discussed the management with Dr. Love on 05/22/19 I agree with the History, Examination, Assessment and Plan documented above with any addition or exceptions noted below. Pt. arousable but still somewhat somnolent from procedure sedation, per nursing. Able to maintain focus for short duration. Moves RUE. BP's 150-170's/ 70-80's. BBS CTA, Irreg rate controlled, Abd ND, PEG appropriately placed w/o bleeding. Labs stable. Continue current care. Assess rehab potential.
[2019-05-22] MEDS: Famotidine/PF 20 mg/2ml Vial SLOW IVP SCH ×2 (09:31→21:48)
[2019-05-22] MEDS: Amoxicillin/Potassium Clav 875 MG TAB PER TUBE SCH ×2 (09:32→21:47)
[2019-05-22] MEDS: Furosemide 40 MG TAB PO SCH (09:32)
[2019-05-22] MEDS: Carvedilol 6.25 MG TAB PO SCH ×2 (09:32→17:40)
[2019-05-22] MEDS: Amiodarone 200 MG TAB PER TUBE SCH ×3 (09:32→21:47)
[2019-05-22] MEDS: Lisinopril 5 MG TAB PO SCH ×2 (09:33→21:47)
[2019-05-22] MEDS: Aspirin 81 mg Enteric Coated Tablet PO SCH (09:33)
[2019-05-22] MEDS ORDERED: Lidocaine 1% PF 5 ML VIAL ONE (09:35)
[2019-05-22] MEDS ORDERED: PROPOFOL 200 MG/20 ML VIAL ONE (09:35)
[2019-05-22] MEDS ORDERED: ePHEDrine 50 MG/ML VIAL ONE (09:35)
--- NOTE | 2019-05-22 10:51 | PRG ---
DATE OF SERVICE: 05/22/2019 SUBJECTIVE: Mr. Steiner is resting now. No complaints. OBJECTIVE: VITAL SIGNS: His blood pressure 150/83, pulse it was in the 80s earlier, now it is at 60 with sinus rhythm. LUNGS: Clear. CARDIAC: Normal S1 and normal S2. ABDOMEN: Soft, nontender. ASSESSMENT: 1. Paroxysmal atrial fibrillation. 2. Hypertension. PLAN: 1. He is being maintained on amiodarone and carvedilol, heart rate becoming relatively slow. 2. May need to reduce either carvedilol or amiodarone. We will continue the same for today. Job ID: [id number]
[2019-05-22 11:31] VITALS: BMI 34.0
[2019-05-22] MEDS ORDERED: Promethazine HCl 25 MG/ML VIAL IM PRN (13:03)
[2019-05-22] MEDS ORDERED: Promethazine HCl 25 MG/ML VIAL SLOW IVP PRN (13:03)
[2019-05-22] MEDS ORDERED: Ondansetron HCl/PF 4 MG/2 ML Vial IVP PRN (13:03)
[2019-05-22] MEDS: Thiamine HCl 200 MG/2 ML VIAL IM SCH ×2 (13:46→14:45)
--- NOTE | 2019-05-22 15:33 | OP ---
DATE OF PROCEDURE: 05/22/2019 PROCEDURE PERFORMED: Esophagogastroduodenoscopy with endoscopic gastrostomy tube placed. PREOPERATIVE DIAGNOSES: Status post cerebrovascular accident, dysphagia. POSTOPERATIVE DIAGNOSIS: Normal exam, except placement of gastrostomy tube. DESCRIPTION OF PROCEDURE: The patient was placed on his back and was given sedation by Anesthesia Department. The patient was already on scheduled antibiotics from before. No additional antibiotics given. A bite block was placed. A Pentax video gastroscope under direct vision passed down the oropharynx past the GE junction into the stomach and subsequently into the descending duodenum. The esophageal mucosa appeared normal. He did have a large amount of thick mucus in the back of the throat and the posterior pharynx. The stomach was free of any pathology, except for hiatus hernia. The duodenal bulb, descending duodenum, no pathology. A G-tube site was marked by applying finger pressure abdominal wall. The site was cleaned and surgically prepped. The site was anesthetized with 1% Xylocaine infiltration. Over the site, a size 16 Angiocath was advanced into the stomach. Through the Angiocath, a guidewire was introduced into the stomach. This was grasped with polypectomy snare. The wire was pulled out. The scope was removed. Through the site of wire entry, a 0.5 cm size incision was made. To the end of the guidewire protruding outside the mouth, a gastrostomy tube was connected. The wire was pulled back retrograde and the tube left in place. The patient re-scoped again to confirm proper placement of G-tube. No complications. The stomach decompressed and the scope removed. RECOMMENDATION: 1. Hold off tube feeding until 6 p.m. today. 2. Start tube feeding at 6 p.m. and Jevity 1.2 at 25 mL/hour. Job ID: [id number] [facility]
[2019-05-23] MEDS: Scopolamine 1.5 mg/72 hour Patch TD SCH (05:25)
[2019-05-23 06:32] LABS: Hemoglobin 13.2 g/dL (14.0-18.0); Mean Corpuscular HGB CONC 32.7 g/dL (32.0-36.0); Mean Corpuscular Hemoglobin 30.3 pg (27.0-31.0); Mean Corpuscular Volume 92.9 fL (78.0-98.0); Mean Platelet Volume 9.4 fL (7.4-10.4); Platelet Count 271 thou/uL (130-400); RBC Distribution Width 14.8 % (11.5-14.5); Red Blood Cell (RBC) Count 4.35 mill/uL (4.70-6.10); White Blood Cell (WBC) Count 29.2 thou/uL (4.8-10.8)
[2019-05-23 06:48] LABS: Albumin 3.2 g/dL (3.4-4.8)
[2019-05-23 06:50] LABS: Calcium 8.8 mg/dL (7.8-10.44); Chloride 103 mmol/L (98-107); Sodium 132 mmol/L (136-145)
[2019-05-23 06:51] LABS: Globulin 3.1 g/dL (2.4-3.5); Glucose 179 mg/dL (83-110); Protein, Total 6.3 g/dL (5.8-8.1)
[2019-05-23 06:52] LABS: Carbon Dioxide 14 mmol/L (23-31)
[2019-05-23 06:53] LABS: Bilirubin, Total 1.1 mg/dL (0.2-1.2)
[2019-05-23 06:54] LABS: Alkaline Phosphatase 107 U/L (40-150)
[2019-05-23 06:55] LABS: BUN (Urea Nitrogen) 81 mg/dL (8.4-25.7)
[2019-05-23 06:56] LABS: AST (SGOT) 216 U/L (5-34)
[2019-05-23 06:57] LABS: ALT (SGPT) 309 U/L (8-55)
[2019-05-23] MEDS: HumaLOG 300 UNITS/3 ML VIAL SC PRN (07:14)
[2019-05-23 07:39] LABS: Band 1 % (5-11); Lymphocytes 20 % (21-51); MDiff Complete? YES; Monocytes 2 % (0-10); Neutrophil 77 % (42-75); Nucleated RBC 2 % (0); Platelet Morphology Comment Appears Adequate; Polychromasia SLIGHT = 2-3 cells (100X) (0-2/hpf)
[2019-05-23 07:43] LABS: Calc. Creatinine Clearance 30 mL/min (70-130); Estimated GFR-MDRD 24; Potassium 6.8 mmol/L (3.5-5.1)
[2019-05-23 07:45] LABS: Anion Gap 22 mmol/L (10-20)
[2019-05-23 07:57] VITALS: TEMP 98
[2019-05-23] MEDS ORDERED: HumaLOG 300 UNITS/3 ML VIAL SC SCH (08:00)
[2019-05-23] MEDS ORDERED: Dextrose 50% Abboject 50 ML SYRINGE SLOW IVP SCH (08:00)
[2019-05-23] MEDS ORDERED: Calcium Gluc 4.6 MEQ/10 ML (100 MG/ML) SLOW IVP SCH (08:00)
[2019-05-23] MEDS ORDERED: Albuterol Sulfate 1.25 MG/3 ML NEB NEB SCH (08:15)
[2019-05-23] MEDS: Furosemide 40 MG TAB PO SCH (09:01)
[2019-05-23] MEDS: Aspirin 81 mg Enteric Coated Tablet PO SCH (09:02)
[2019-05-23] MEDS: Carvedilol 6.25 MG TAB PO SCH (09:02)
[2019-05-23] MEDS: Amoxicillin/Potassium Clav 875 MG TAB PER TUBE SCH (09:02)
[2019-05-23] MEDS: Enoxaparin Sodium 100 MG/ML SYRINGE SC SCH (09:02)
[2019-05-23] MEDS: Amiodarone 200 MG TAB PER TUBE SCH (09:02)
[2019-05-23 09:03] VITALS: BP 157/78
[2019-05-23] MEDS: Lisinopril 5 MG TAB PO SCH (09:03)
[2019-05-23] MEDS: Famotidine/PF 20 mg/2ml Vial SLOW IVP SCH (09:03)
--- NOTE | 2019-05-23 10:48 | PDOC.EVN ---
Event Note - Event Note Event Note: Resident team called regarding critical potassium value of 6.8. Promptly pt was ordered to have 10u humalog, 1amp D50, Calcium gluconate. Along with stat EKG and recheck of potassium. Lab was called and verified no hemolysis on sample in rout to pts room. On arrival HR noted to be in upper 40's. On exam HR in upper 40's. On exam pt was bradycardic and had mild crackles on inspiration in bilateral lung bases but otherwise exam unremarkable. EKG showed bradycardia, no evidence of peaked T waves or other T wave changes. Pts daughter (ELIER) was called to update on status. DNAR status was verified once again. HR rapidly decreased to asystole and exam was performed as follows. No pulse on carotid or radial checks, no heart sounds, no breath sounds, no pupillary reflex, no withdrawal or arousal on crushed nail bed. Pt was pronounced at 0824 on 05/23/2019. Addendum - Attending - Attending Attestation I was contacted by Dr. Love at 0821 to give me an update of patient's status. He had new labs showing elevated creatinine and hyperkalemia. EKG did not show evidence of cardiotoxic effects of hyperkalemia. Vitals were otherwise stable during that time including no hypoxia on pulse ox. Short term interventions were in progress. Code status confirmed, and during my discussion with Dr. Love, patient went into asystole and . TOD as documented.
--- NOTE | 2019-05-24 05:02 | DIS ---
DATE OF ADMISSION: 05/11/2019 DATE OF DISCHARGE: 05/23/2019 RESIDENT: Tevin Love MD TIME OF : 823. CAUSE OF : Ischemic cerebrovascular accident, atrial fibrillation, and cardiomyopathy with coronary artery disease. SECONDARY DIAGNOSES: 1. Atrial fibrillation with RVR. 2. Sepsis secondary to aspiration pneumonia. 3. Cerebrovascular event with left-sided weakness. 4. Chronic obstructive pulmonary disease exacerbation. 5. Subdural hematoma. 6. New onset systolic heart failure with ejection fraction of 20% to 25%. 7. Delirium. 8. Dysphagia. 9. Hypertension. 10. Peripheral vascular disease. 11. Alcohol abuse. 12. Type 2 myocardial infarction. HOSPITAL COURSE: An 83-year-old male, who presented originally to the hospital on 05/11/2019 for weakness and was found to be in atrial fibrillation with rapid ventricular rate. The patient was admitted on diltiazem drip and having been given amiodarone bolus. Shortly thereafter, the patient had an acute change in mental status and so brain imaging and angiographic imaging was performed and patient was found to have chronic subdural hematoma, as well as occlusion of right MCA with a focal 4.6 mm clot. Neurology and Neurosurgery were consulted and it was determined the patient would be best suited to have therapeutic Lovenox for a said clot and that subdural hematoma was stable. The patient had repeat imaging done in following days and subdural hematoma proved to be stable. Additionally, hospital course was complicated by right lower lobe aspiration pneumonia, which patient was treated with Augmentin. The patient was also thought to be having mild COPD exacerbation and was treated with steroids and DuoNeb for this. Additionally, the patient was found to have new onset heart failure with reduced ejection fraction of 20% to 25%. Cardiology was consulted and patient started on appropriate medications for this. Overall, the patient proved to be stable for several days, has had persistent dysphagia and so goals of care conversation was had with the family and patient' s family decided that the patient should get PEG tube placement. The patient had PEG tube placed on 05/22/2019 without complications. Overnight, the patient had some borderline low heart rates. on a.m. labs on 05/23/2019, the patient was found to have a potassium of 6.8 and an elevated creatinine as well. It was then that the admitting team was called to his aid and he was found to have heart rate of 40 as documented in the event. Hyperkalemia and bradycardia were managed promptly. Family was called to verify code status of DNAR, and patient quickly had heart rate dropped to asystole. Time of was announced as listed above at 8:24 a.m. on 2018. Job ID: [id number] MTDD
--- NOTE | 2019-05-24 07:39 | PQF ---
[employer] [facility] JeannetteDENISE III, KATHERINE MD [id number] [address] [place] [address] [id number] CLINICAL DOCUMENTATION CLARIFICATION FORM: POST DISCHARGE Addendum to original discharge summary date: ____ Late entry note date: __ DATE: 05/24/2019 ATTN: HONORIO SANCHEZ MD Please exercise your independent, professional judgment in responding to the clarification form. Clinical indicators are provided on the bottom of this form for your review Could you Please clarify which condition Occasion of admission Please check appropriate box(s): [ x ] Atrial Fibrillation [ ] Sepsis [ ] Other diagnosis [ ] Unable to determine For continuity of documentation, please document condition throughout progress notes and discharge summary. Thank You. 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 HTN - community acquired PNA CVA - Documented in family medicine PNs on 05/18 by Jorge Salazar MD TREATMENTS: admit to IMCU and continue amio - Documented in H&P on 05/11 by Marisa Gilbert monitor on tele - Documented in H&P on 05/11 by Marisa Gilbert cards consult - Documented in H&P on 05/11 by Marisa Gilbert s/p dose azhithro 500mg and rocephin 2g in ED . 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 All Rights Reserved [email or web address] [email or web address] [not provided] MTDD
== END 2019-05-23 11:40 | disposition expired | DRG 308 ==
LOC: ERS 15:05 → CCU 20:30 → 2NO 05-17 20:19 → 2SE 05-19 11:00
PROVIDERS: ADMIT Family Medicine; ATTEND Family Medicine
PROC: 0DB68ZZ Excision of Stomach, Via Natural or Artificial Opening Endoscopic (ICD-10-PCS; principal; 2019-05-22)
PROC: 0DH63UZ Insertion of Feeding Device into Stomach, Percutaneous Approach (ICD-10-PCS; 2019-05-22)
DX: I48.0 Paroxysmal atrial fibrillation (principal); A41.9 Sepsis, unspecified organism; I62.03 Nontraumatic chronic subdural hemorrhage; I50.21 Acute systolic (congestive) heart failure; I63.39 Cerebral infarction due to thrombosis of other cerebral artery; G92 Toxic encephalopathy; J69.0 Pneumonitis due to inhalation of food and vomit; F05 Delirium due to known physiological condition; I24.8 Other forms of acute ischemic heart disease; G81.94 Hemiplegia, unspecified affecting left nondominant side; J44.1 Chronic obstructive pulmonary disease with (acute) exacerbation; I42.8 Other cardiomyopathies; Z91.041 Radiographic dye allergy status; Z79.899 Other long term (current) drug therapy; E78.5 Hyperlipidemia, unspecified; N40.0 Benign prostatic hyperplasia without lower urinary tract symptoms; M54.9 Dorsalgia, unspecified; G89.29 Other chronic pain; I25.10 Atherosclerotic heart disease of native coronary artery without angina pectoris; I11.0 Hypertensive heart disease with heart failure; Z90.49 Acquired absence of other specified parts of digestive tract; Z87.891 Personal history of nicotine dependence; Z66 Do not resuscitate; F10.10 Alcohol abuse, uncomplicated; E66.01 Morbid (severe) obesity due to excess calories; Z68.34 Body mass index [BMI] 34.0-34.9, adult; K44.9 Diaphragmatic hernia without obstruction or gangrene; K31.7 Polyp of stomach and duodenum; E87.5 Hyperkalemia; R47.81 Slurred speech; R29.810 Facial weakness; T42.4X5A Adverse effect of benzodiazepines, initial encounter; I73.9 Peripheral vascular disease, unspecified; I69.391 Dysphagia following cerebral infarction; R13.12 Dysphagia, oropharyngeal phase
CPT/HCPCS: 36415; 36416; 70450; 70496; 70498; 71045; 71275; 74018; 80048; 80053; 80061; 80076; 80307; 81003; 81015; 82140; 82553; 82805; 83605; 83735; 83880; 84100; 84145; 84443; 84484; 85025; 85379; 85610; 85730; 86780; 87040; 87086; 87389; 87804; 89220; 90471; 90670; 93005; 93010; 93306; 93923; 94640; 96361; 96365; 96366; 96367; 96368; 96375; 96376; G0009; J0282; J0360; J0456; J0696; J1160; J1200; J1630; J1650; J1720; J1815; J1940; J2001; J2060; J2543; J2704; J2920; J2930; J3411; J3475; J3490; J7050; J7070; J7620; Q9966; Q9967; S0028